=== PATIENT | female | born 1990 | race Caucasian/White ===

== ENCOUNTER 2025-06-11 18:56 | Emergency (ER) | payer SELFPAY ==
--- NOTE | ~2025-06-11 | XR_ITS ---
XR knee RT 3V INDICATION: right knee pain after twisting today. . COMPARISON: None. FINDINGS: Frontal, lateral and oblique views of the right knee demonstrate no acute fracture or dislocation. There is no joint effusion. IMPRESSION: Radiographic examination of the right knee demonstrates no acute fracture or dislocation. Reviewed, dictated and finalized at location S. IMPRESSION: Radiographic examination of the right knee demonstrates no acute fracture or di slocation.
[2025-06-11 19:04] VITALS: BP 149/94; PULSE 76; RESP 18; TEMP 36.3; O2SAT 100
--- NOTE | 2025-06-11 19:47 | ED.GENADULT ---
HPI - General Adult General Chief complaint: Extremity Injury, Lower Stated complaint: right knee injury Source: patient Mode of arrival: ambulatory Limitations: no limitations History of Present Illness HPI narrative: Patient presents for evaluation of right knee pain. She indicates she has a history of chronic knee pain and has had several surgeries in the past. Today she was playing with her dog when she twisted her right knee. Pain is 7/10 in severity and rest and increased in severity with flexion. No radicular component. She has not taken any medication for symptoms. Related Data Home Medications ?Medication ?Instructions ?Recorded ?Confirmed ?Last Taken ?Type No Home Medications 06/11/25 06/11/25 Unknown History Allergies Allergy/AdvReac Type Severity Reaction Status Date / Time No Known Allergies Allergy Verified 06/11/25 19:06 Review of Systems Review of Systems: CONSTITUTIONAL: Denies fever, chills, or sweats. EYES: Denies visual changes, redness, or discharge. ENT: Denies rhinorrhea, congestion, sore throat, or otalgia. CARDIOVASCULAR: Denies chest pain, palpitations, or edema. RESPIRATORY: Denies cough or dyspnea. GASTROINTESTINAL: Denies abdominal pain, nausea, vomiting, or diarrhea. GENITOURINARY: Denies dysuria or hematuria. SKIN: Denies rash or itching. MUSCULOSKELETAL: Reports right knee pain NEUROLOGIC: Denies headache, numbness, dizziness, or weakness. PSYCHIATRIC: Denies anxiety or depression. [facility] Past Medical History Medical History Chronic knee pain Surgical History Surgical History History of knee surgery Family History Family History Mother Family history non-contributory Social History Social History Smoking packs per day: 0.5 Smoking cigarettes per day: 10.0 Smoking status: Current every day smoker Alcohol intake: current Gender identity (if verbalized by the patient): Female Sexual Orientation (if Verbalized by the Patient): Straight or Heterosexual Exam Narrative: GENERAL: Well-appearing, well-nourished, and in no acute distress. HEAD: Normocephalic, atraumatic. EYES: PERRLA and EOMI. ENT: Nares clear, no rhinorrhea or epistaxis. Mucous membranes moist. Oropharynx without tonsillar hypertrophy exudate or other lesions. Bilateral TMs pearly gibson nonbulging NECK: Supple. No adenopathy or masses. No carotid bruits or JVD CHEST: Clear to auscultation. No respiratory distress. No wheezes rales or rhonchi HEART: Regular rate and rhythm. No murmur heard. Normal peripheral pulses. ABDOMEN: Soft, nontender, nondistended, normal active bowel sounds. EXTREMITIES: Full range of motion of the right knee without crepitus or deformity. She does exhibit hesitancy with flexion extension secondary to pain SKIN: Linear surgical scar noted to the anterior aspect of the right knee without erythema or drainage. Warm, dry, no rash. NEURO: No focal deficits. Alert and oriented x3. PSYCH: Normal mood and affect. Course Course Emergency Course: This is a 34-year-old female who presented for evaluation of right knee pain. X-ray negative for fracture. Provided with Fausto wrap and crutches. Advised on RICE therapy. NSAIDs for pain. Follow up with primary provider. Go to the ER for worsening symptoms. Pt in agreement with plan of care. Level of Care: Express Care Visit Vital Signs Vital signs: Vital Signs Temperature 36.3 C L 06/11/25 19:04 Pulse Rate 76 06/11/25 19:04 Respiratory Rate 18 06/11/25 19:04 Blood Pressure 149/94 H 06/11/25 19:04 Pulse Oximetry 100 06/11/25 19:04 Oxygen Delivery Room Air 06/11/25 19:04 Temperature 36.3 C L 06/11/25 19:04 Pulse Rate 76 06/11/25 19:04 Respiratory Rate 18 06/11/25 19:04 Blood Pressure 149/94 H 06/11/25 19:04 Pulse Oximetry 100 06/11/25 19:04 Oxygen Delivery Room Air 06/11/25 19:04 Medical Decision Making Vital Signs Vital Signs: Vital Signs Temperature 36.3 C L 06/11/25 19:04 Pulse Rate 76 06/11/25 19:04 Respiratory Rate 18 06/11/25 19:04 Blood Pressure 149/94 H 06/11/25 19:04 Pulse Oximetry 100 06/11/25 19:04 Oxygen Delivery Room Air 06/11/25 19:04 Temperature 36.3 C L 06/11/25 19:04 Pulse Rate 76 06/11/25 19:04 Respiratory Rate 18 06/11/25 19:04 Blood Pressure 149/94 H 06/11/25 19:04 Pulse Oximetry 100 06/11/25 19:04 Oxygen Delivery Room Air 06/11/25 19:04 Imaging Data Radiologist's impression: Ordering Physician: Fernando Crowder APRN Date of Service: 06/11/25 Procedure(s): XR knee RT 3V Accession Number(s): [id number] cc: Fernando Crwoder APRN; AIR CONDITIONING INSTALLER SUPERVISOR PHYSICIAN~ XR knee RT 3V INDICATION: right knee pain after twisting today. . COMPARISON: None. FINDINGS: Frontal, lateral and oblique views of the right knee demonstrate no acute fracture or dislocation. There is no joint effusion. IMPRESSION: Radiographic examination of the right knee demonstrates no acute fracture or dislocation. Discharge Plan Discharge Clinical Impression: Muscle strain of right knee Patient Disposition: Home Condition: Stable Instructions: Antibiotic Form, Knee Pain (ED) Patient Language: Eritrean Prescriptions: No Action No Home Medications Follow-up/Referrals: Preston Hernandez MD [Physician, Family Practice] Stand Alone Forms: Work/School Release IP Time of Disposition: 19:43
--- OUTSIDE RECORDS SUMMARY | 2025-06-11 20:07 | XMS_ITS | Encounter Summary ---
Author Organization [facility] Address [address] [place] [address] Care Team Providers Care Pit Clerk Name Role Phone Tyler Khoury MD Primary Care Provider [phone] Encounter Details Date Type Department Care Team (Late st Contact Info) Description 06/08/2008 Outpatient Historical [facility] [address] [facility] [address] [place] [address] Xavier Smith DO [address] [place] [address] [address] [place] [address] Social History Tobacco Use Types Packs/Day Years Used Date Smoking Tobacco: Never Assessed Comments Unknown Sex and Gender Information Value Date Recorded Sex Assigned at Not on file Legal Sex Female 5:28 AM WATER RESOURCE MANAGER Gender Identity Not on file Sexual Orientation Not on file documented as of this encounter Plan of Treatment Not on file documented as of this encounter Visit Diagnoses Not on filedocumented in this encounter Additional Health Concerns Infection Onset Date Last Indicated Resolved Time R/O COVID-19 12/15/2021 12/15/2021 12/15/2021 6:37 PM CDT R/O COVID-19 07/19/2022 07/19/2022 07/19/2022 8:51 AM WATER RESOURCE MANAGER COVID-19 07/19/2022 07/19/2022 08/08/2022 1:16 AM WATER RESOURCE MANAGER documented as of this encounter Care Teams Pit Clerk Relationship Specialty Start Date End Date Tyler Khoury MD [address] [place] [address] PCP - General 10/19/12 05/06/14 documented as of this encounter
--- OUTSIDE RECORDS SUMMARY | 2025-06-11 20:07 | XMS_ITS | Encounter Summary ---
Author Organization [facility] Address [address] [place] [address] Care Team Providers Care Chassis Engineer Name Role Phone Tyler Khoury MD Primary Care Provider [phone] Encounter Details Date Type Department Care Team (Late st Contact Info) Description 05/18/2008 Outpatient Historical [facility] [address] [place] [phone] Steve Womack MD [address] [place] [address] [address] [place] [address] Social History Tobacco Use Types Packs/Day Years Used Date Smoking Tobacco: Never Assessed Comments Unknown Sex and Gender Information Value Date Recorded Sex Assigned at Not on file Legal Sex Female 5:28 AM TEST CENTER MANAGER Gender Identity Not on file Sexual Orientation Not on file documented as of this encounter Plan of Treatment Not on file documented as of this encounter Visit Diagnoses Not on filedocumented in this encounter Additional Health Concerns Infection Onset Date Last Indicated Resolved Time R/O COVID-19 12/15/2021 12/15/2021 12/15/2021 6:37 PM CDT R/O COVID-19 07/19/2022 07/19/2022 07/19/2022 8:51 AM TEST CENTER MANAGER COVID-19 07/19/2022 07/19/2022 08/08/2022 1:16 AM TEST CENTER MANAGER documented as of this encounter Care Teams Chassis Engineer Relationship Specialty Start Date End Date Tyler Khoury MD [address] [place] [address] PCP - General 10/19/12 05/06/14 documented as of this encounter
--- OUTSIDE RECORDS SUMMARY | 2025-06-11 20:07 | XMS_ITS | Encounter Summary ---
Author Organization [employer] Address [address] [place] [address] Care Team Providers Care E Commerce Project Manager Name Role Phone Tyler Khoury MD Primary Care Provider [phone] Encounter Details Date Type Department Care Team (Late st Contact Info) Description 12/12/2007 Outpatient Historical [facility] Vonda Brito MD [address] [facility] [address] [place] [phone] Syncope and Collapse Social History Tobacco Use Types Packs/Day Years Used Date Smoking Tobacco: Never Assessed Comments Unknown Sex and Gender Information Value Date Recorded Sex Assigned at Not on file Legal Sex Female 5:28 AM LINUX NETWORK SYSTEMS ADMINISTRATOR Gender Identity Not on file Sexual Orientation Not on file documented as of this encounter Plan of Treatment Not on file documented as of this encounter Visit Diagnoses Diagnosis Syncope and collapse documented in this encounter Additional Health Concerns Infection Onset Date Last Indicated Resolved Time R/O COVID-19 12/15/2021 12/15/2021 12/15/2021 6:37 PM CDT R/O COVID-19 07/19/2022 07/19/2022 07/19/2022 8:51 AM LINUX NETWORK SYSTEMS ADMINISTRATOR COVID-19 07/19/2022 07/19/2022 08/08/2022 1:16 AM LINUX NETWORK SYSTEMS ADMINISTRATOR documented as of this encounter Care Teams E Commerce Project Manager Relationship Specialty Start Date End Date Tyler Khoury MD [address] [place] [address] PCP - General 10/19/12 05/06/14 documented as of this encounter
--- OUTSIDE RECORDS SUMMARY | 2025-06-11 20:07 | XMS_ITS | Encounter Summary ---
Author Organization [facility] Address [address] [place] [address] Care Team Providers Care Channeler Insole Name Role Phone Tyler Khoury MD Primary Care Provider [phone] Encounter Details Date Type Department Care Team (Late st Contact Info) Description 12/13/2007 Outpatient Historical [facility] [address] [facility] [address] [place] [phone] Xvaier Smith DO [address] [place] [address] [address] [place] [address] Social History Tobacco Use Types Packs/Day Years Used Date Smoking Tobacco: Never Assessed Comments Unknown Sex and Gender Information Value Date Recorded Sex Assigned at Not on file Legal Sex Female 5:28 AM BRAID FOLDER Gender Identity Not on file Sexual Orientation Not on file documented as of this encounter Plan of Treatment Not on file documented as of this encounter Visit Diagnoses Not on filedocumented in this encounter Additional Health Concerns Infection Onset Date Last Indicated Resolved Time R/O COVID-19 12/15/2021 12/15/2021 12/15/2021 6:37 PM CDT R/O COVID-19 07/19/2022 07/19/2022 07/19/2022 8:51 AM BRAID FOLDER COVID-19 07/19/2022 07/19/2022 08/08/2022 1:16 AM BRAID FOLDER documented as of this encounter Care Teams Channeler Insole Relationship Specialty Start Date End Date Tyler Khoury MD [address] [place] [address] PCP - General 10/19/12 05/06/14 documented as of this encounter
--- OUTSIDE RECORDS SUMMARY | 2025-06-11 20:07 | XMS_ITS | Encounter Summary ---
Author Organization [facility] Address [address] [place] [address] Care Team Providers Care Lehr Operator Name Role Phone Tyler Khoury MD Primary Care Provider [phone] Encounter Details Date Type Department Care Team (Late st Contact Info) Description 05/14/2008 Outpatient Historical [facility] [address] [place] [address] Steve Womack MD [address] [place] [address] [address] [place] [address] Social History Tobacco Use Types Packs/Day Years Used Date Smoking Tobacco: Never Assessed Comments Unknown Sex and Gender Information Value Date Recorded Sex Assigned at Not on file Legal Sex Female 5:28 AM HEEL REDUCER Gender Identity Not on file Sexual Orientation Not on file documented as of this encounter Plan of Treatment Not on file documented as of this encounter Visit Diagnoses Not on filedocumented in this encounter Additional Health Concerns Infection Onset Date Last Indicated Resolved Time R/O COVID-19 12/15/2021 12/15/2021 12/15/2021 6:37 PM CDT R/O COVID-19 07/19/2022 07/19/2022 07/19/2022 8:51 AM HEEL REDUCER COVID-19 07/19/2022 07/19/2022 08/08/2022 1:16 AM HEEL REDUCER documented as of this encounter Care Teams Lehr Operator Relationship Specialty Start Date End Date Tyler Khoury MD [address] [place] [address] PCP - General 10/19/12 05/06/14 documented as of this encounter
--- OUTSIDE RECORDS SUMMARY | 2025-06-11 20:07 | XMS_ITS | Encounter Summary ---
Author Organization [facility] Address [address] [place] [address] Care Team Providers Care Spiritual Care Coordinator Name Role Phone Tyler Khoury MD Primary Care Provider [phone] Encounter Details Date Type Department Care Team (Latest Contact Info) Description 11/08/2007 Outpatient Historical [facility] Meredith Rios MD [address] [address] Supervision of Other Normal Social History Tobacco Use Types Packs/Day Years Used Date Smoking Tobacco: Never Assessed Comments Unknown Sex and Gender Information Value Date Recorded Sex Assigned at Not on file Legal Sex Female 5:28 AM HEAD ROSE GROWER Gender Identity Not on file Sexual Orientation Not on file documented as of this encounter Plan of Treatment Not on file documented as of this encounter Procedures Procedure Name Priority Date/Time Associated Diagnosis Comments US OB LESS THAN 14 WKS SINGLE GEST Timed Study 11/08/2007 1:48 PM CDT documented in this encounter Results * US OB < 14 WKS SINGLE GEST (11/08/2007 1:48 PM CDT) Anatomical Region Laterality Modality Pelvis Other 11/08/2007 1:48 PM CDT Narrative 11/10/2007 6:41 AM CDT [facility] [address] [address] Admit Date: 11/08/2007 OLIVA BASILIO Sex: F Admit Prov: MEREDITH BARTON Date: 1990 Primary Care Prov: JESS BEGUM CMRN: [id number] [facility]: [id number] IMAGING SERVICES Ordering Prov: MEREDITH BARTON Accession Number: [id number] Interpretation PLEASE SEE REPORT FROM [facility] IN AWD OR ULTRAVISUAL. Dictated by: RADIOLOGY, DEPARTMENT O Electronically signed by: RADIOLOGY, DEPARTMENT 11/10/2007 06:41 Transcribed: 11/09/2007 14:34 RLH Procedure Note Provider, Historical - 11/10/[address] [address] Admit Date: 11/08/2007 OLIVA BASILIO Sex: F Admit Prov: MEREDITH BARTON Date: 1990 Primary Care Prov: JESS BEGUM CMRN: [id number] Room: [facility] SSN: [id number] IMAGING SERVICES Ordering Prov: BARTON MEREDITH Diomedes Interpretation PLEASE SEE REPORT FROM [facility] IN AWD OR ULTRAVISUAL. Dictated by: RADIOLOGY, DEPARTMENT O Electronically signed by: RADIOLOGY, DEPARTMENT 11/10/2007 06:41 Transcribed: 11/09/2007 14:34 RL Meredith Rios MD US ORDERABLES Final Result documented in this encounter Visit Diagnoses Diagnosis Supervision of other normal documented in this encounter Additional Health Concerns Infection Onset Date Last Indicated Resolved Time R/O COVID-19 12/15/2021 12/15/2021 12/15/2021 6:37 PM CDT R/O COVID-19 07/19/2022 07/19/2022 07/19/2022 8:51 AM HEAD ROSE GROWER COVID-19 07/19/2022 07/19/2022 08/08/2022 1:16 AM HEAD ROSE GROWER documented as of this encounter Care Teams Spiritual Care Coordinator Relationship Specialty Start Date End Date Tyler Khoury MD [address] [place] [address] PCP - General 10/19/12 05/06/14 documented as of this encounter
--- OUTSIDE RECORDS SUMMARY | 2025-06-11 20:07 | XMS_ITS | Encounter Summary ---
Author Organization [facility] Address [address] [place] [address] Care Team Providers Care Footwear Production Machine Operator Name Role Phone Tyler Khoury MD Primary Care Provider [phone] Encounter Details Date Type Department Care Team (Late st Contact Info) Description 04/08/2008 Outpatient Historical [facility] [address] [facility] [address] [place] [phone] Xavier Smith DO [address] [place] [address] [address] [place] [address] Social History Tobacco Use Types Packs/Day Years Used Date Smoking Tobacco: Never Assessed Comments Unknown Sex and Gender Information Value Date Recorded Sex Assigned at Not on file Legal Sex Female 5:28 AM PROPERTY CONDITION ASSESSOR Gender Identity Not on file Sexual Orientation Not on file documented as of this encounter Plan of Treatment Not on file documented as of this encounter Visit Diagnoses Not on filedocumented in this encounter Additional Health Concerns Infection Onset Date Last Indicated Resolved Time R/O COVID-19 12/15/2021 12/15/2021 12/15/2021 6:37 PM CDT R/O COVID-19 07/19/2022 07/19/2022 07/19/2022 8:51 AM PROPERTY CONDITION ASSESSOR COVID-19 07/19/2022 07/19/2022 08/08/2022 1:16 AM PROPERTY CONDITION ASSESSOR documented as of this encounter Care Teams Footwear Production Machine Operator Relationship Specialty Start Date End Date Tyler Khoury MD [address] [place] [address] PCP - General 10/19/12 05/06/14 documented as of this encounter
--- OUTSIDE RECORDS SUMMARY | 2025-06-11 20:07 | XMS_ITS | Encounter Summary ---
Author Organization [facility] Address [address] [place] [address] Care Team Providers Care Ui Software Developer Name Role Phone Tyler Khoury MD Primary Care Provider [phone] Encounter Details Date Type Department Care Team (Late st Contact Info) Description 05/07/2008 Outpatient Historical [facility] [address] [facility] [address] [place] [address] Xavier Smith DO [address] [place] [address] [address] [place] [address] Social History Tobacco Use Types Packs/Day Years Used Date Smoking Tobacco: Never Assessed Comments Unknown Sex and Gender Information Value Date Recorded Sex Assigned at Not on file Legal Sex Female 5:28 AM SLURRY WORKER Gender Identity Not on file Sexual Orientation Not on file documented as of this encounter Plan of Treatment Not on file documented as of this encounter Visit Diagnoses Not on filedocumented in this encounter Additional Health Concerns Infection Onset Date Last Indicated Resolved Time R/O COVID-19 12/15/2021 12/15/2021 12/15/2021 6:37 PM CDT R/O COVID-19 07/19/2022 07/19/2022 07/19/2022 8:51 AM SLURRY WORKER COVID-19 07/19/2022 07/19/2022 08/08/2022 1:16 AM SLURRY WORKER documented as of this encounter Care Teams Ui Software Developer Relationship Specialty Start Date End Date Tyler Khoury MD [address] [place] [address] PCP - General 10/19/12 05/06/14 documented as of this encounter
--- OUTSIDE RECORDS SUMMARY | 2025-06-11 20:07 | XMS_ITS | Encounter Summary ---
Author Organization [facility] Address [address] [place] [address] Care Team Providers Care Medical Coding Auditor Name Role Phone Tyler Khoury MD Primary Care Provider [phone] Encounter Details Date Type Department Care Team (Late st Contact Info) Description 05/06/2008 Outpatient Historical [facility] [address] [facility] [address] [place] [address] Xavier Smith DO [address] [place] [address] [address] [place] [address] Social History Tobacco Use Types Packs/Day Years Used Date Smoking Tobacco: Never Assessed Comments Unknown Sex and Gender Information Value Date Recorded Sex Assigned at Not on file Legal Sex Female 5:28 AM PETROLEUM SUPPLY SPECIALIST Gender Identity Not on file Sexual Orientation Not on file documented as of this encounter Plan of Treatment Not on file documented as of this encounter Visit Diagnoses Not on filedocumented in this encounter Additional Health Concerns Infection Onset Date Last Indicated Resolved Time R/O COVID-19 12/15/2021 12/15/2021 12/15/2021 6:37 PM CDT R/O COVID-19 07/19/2022 07/19/2022 07/19/2022 8:51 AM PETROLEUM SUPPLY SPECIALIST COVID-19 07/19/2022 07/19/2022 08/08/2022 1:16 AM PETROLEUM SUPPLY SPECIALIST documented as of this encounter Care Teams Medical Coding Auditor Relationship Specialty Start Date End Date Tyler Khoury MD [address] [place] [address] PCP - General 10/19/12 05/06/14 documented as of this encounter
--- OUTSIDE RECORDS SUMMARY | 2025-06-11 20:07 | XMS_ITS | Encounter Summary ---
Author Organization [facility] Address [address] [place] [address] Care Team Providers Care Video And Sound Recorder Name Role Phone Tyler Khoury MD Primary Care Provider [phone] Encounter Details Date Type Department Care Team (Late st Contact Info) Description 06/03/2008 Outpatient Historical [facility] Meredith Rios MD [address] [phone] Supervision of Other Normal Social History Tobacco Use Types Packs/Day Years Used Date Smoking Tobacco: Never Assessed Comments Unknown Sex and Gender Information Value Date Recorded Sex Assigned at Not on file Legal Sex Female 5:28 AM FISH EGG PACKER Gender Identity Not on file Sexual Orientation Not on file documented as of this encounter Plan of Treatment Not on file documented as of this encounter Procedures Procedure Name Priority Date/Time Associated Diagnosis Comments (BROTH-ENRICHED) GROUP B STREP DETECTION Routine 06/03/2008 9:30 AM CDT documented in this encounter Results * STREPTOCOCCUS GROUP B CULTURE (06/03/2008 9:30 AM CDT) PRELIMINARY REPORT Pending [facility] FINAL REPORT No Streptococcus Group B isolated. [facility] 06/03/2008 9:30 AM CDT 06/03/2008 1:15 PM CDT us Meredith Rios MD MICROBIOLOGY - GENERAL ORDERA BLES Final Result INTERFACE SYSTEM Refer to clinic/hospital department [facility] CLIA# [id number] [address] [place] [address] documented in this encounter Visit Diagnoses Diagnosis Supervision of other normal documented in this encounter Additional Health Concerns Infection Onset Date Last Indicated Resolved Time R/O COVID-19 12/15/2021 12/15/2021 12/15/2021 6:37 PM CDT R/O COVID-19 07/19/2022 07/19/2022 07/19/2022 8:51 AM FISH EGG PACKER COVID-19 07/19/2022 07/19/2022 08/08/2022 1:16 AM FISH EGG PACKER documented as of this encounter Care Teams Video And Sound Recorder Relationship Specialty Start Date End Date Tyler Khoury MD [address] [place] [address] PCP - General 10/19/12 05/06/14 documented as of this encounter
--- OUTSIDE RECORDS SUMMARY | 2025-06-11 20:07 | XMS_ITS | Encounter Summary ---
Author Organization [facility] Address [address] [place] [address] Care Team Providers Care Photogrammetric Tech Name Role Phone Tyler Khoury MD Primary Care Provider [phone] Encounter Details Date Type Department Care Team (Late st Contact Info) Description 12/11/2007 Outpatient Historical [facility] [address] [place] [phone] Meredith Rios MD [address] [place] [phone] Social History Tobacco Use Types Packs/Day Years Used Date Smoking Tobacco: Never Assessed Comments Unknown Sex and Gender Information Value Date Recorded Sex Assigned at Not on file Legal Sex Female 5:28 AM REVENUE FIELD AGENT Gender Identity Not on file Sexual Orientation Not on file documented as of this encounter Plan of Treatment Not on file documented as of this encounter Visit Diagnoses Not on filedocumented in this encounter Additional Health Concerns Infection Onset Date Last Indicated Resolved Time R/O COVID-19 12/15/2021 12/15/2021 12/15/2021 6:37 PM CDT R/O COVID-19 07/19/2022 07/19/2022 07/19/2022 8:51 AM REVENUE FIELD AGENT COVID-19 07/19/2022 07/19/2022 08/08/2022 1:16 AM REVENUE FIELD AGENT documented as of this encounter Care Teams Photogrammetric Tech Relationship Specialty Start Date End Date Tyler Khoury MD [address] [place] [address] PCP - General 10/19/12 05/06/14 documented as of this encounter
--- OUTSIDE RECORDS SUMMARY | 2025-06-11 20:07 | XMS_ITS | Encounter Summary ---
Author Organization [employer] Address 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 Social History Tobacco Use Types Packs/Day Years Used Date Smoking Tobacco: Never Assessed Comments Unknown Sex and Gender Information Value Date Recorded Sex Assigned at Not on file Legal Sex Female 5:28 AM BIOLOGICAL SCIENCES INSTRUCTOR Gender Identity Not on file Sexual Orientation Not on file documented as of this encounter Plan of Treatment Not on file documented as of this encounter Visit Diagnoses Diagnosis 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
--- OUTSIDE RECORDS SUMMARY | 2025-06-11 20:07 | XMS_ITS | Clinical Summary ---
Author Organization [facility] on Address [address] [place] [address] Phone Care Team Providers Care Bleacher Operator Name Role Phone Unavailable Primary Care Provider Unavailabl e Allergies Active Allergy Reactions Criticality Noted Date Comments Ketorolac Unknown 03/04/2024 Possible anxiety per pt Prochlorperazine Anxiety,Hallucination Low 03/03/20 14 Medications ondansetron (ZOFRAN ODT) 4 mg Tablet, Rapid Dissolve Take 1 Tablet (4 mg) by mouth every 8 hours as needed for Nausea/Emesis. Dissolve tablet on top of tongue, then swallow with saliva. 10 Tablet Active Additional Information Patient not taking.Reported on 10/28/2023 acetaminophen (TYLENOL) 500 mg tablet Take 500 mg by mouth every 6 hours as needed. Active Active Problems Problem Noted Date Diagnosed Date Tobacco use 10/07/2016 Cigarette dependence 10/07/2016 Encounters Date Type Department Care Team Description 05/28/2025 External Device Data ST[facility] ABSTRACTION Provider, Abstract 05/21/2025 External Device Data ST[facility] ABSTRACTION Provider, Abstract 05/21/2025 External Device Data ST[facility] ABSTRACTION Provider, Abstract 04/24/2025 External Device Data ST[facility] ABSTRACTION Provider, Abstract 04/23/2025 External Device Data ST[facility] ABSTRACTION Provider, Abstract 04/10/2025 External Device Data STL ABSTRACTION Provider, Abstract from Last 3 Months Family History Medical History Relation Name Comments Healthy Father Hypertension Mother Relation Name Status Comments Father Mother Social History Tobacco Use Types Packs/Day Years Used Date Smoking Tobacco: Every Day Cigarettes 1 8 Smokeless Tobacco: Never Tobacco Cessation:Ready to Q uit: Not Asked; Counseling Given: Not Answered Alcohol Use Standard Drinks/Week Comments Yes 0 (1 standard drink = 0.6 oz pur e alcohol) occ Feeling Safe Answer Date Recorded Are you in a relationship wi th someone who hurts you emotionally and/or physically? No 05/30/2024 Comments No Sex and Gender Information Value Date Recorded Sex Assigned at Not on file Legal Sex Female 5:28 AM CALENDER TENDER Gender Identity Not on file Sexual Orientation Not on file Last Filed Vital Signs Vital Sign Reading Time Taken Comments Blood Pressure 128/84 05/30/2024 4:53 PM CDT Pulse 86 05/30/2024 4:53 PM CDT Temperature 37.2 C (99 F) 05/30/2024 4:53 PM CDT Respiratory Rate 18 05/30/2024 4:53 PM CDT Oxygen Saturation 97% 05/30/2024 4:53 PM CDT Inhaled Oxygen Concentration - - Weight 54.4 kg (120 lb) 05/30/2024 4:53 PM CDT Height 162.6 cm (5' 4) 05/30/2024 4:53 PM CDT Body Mass Index 20.6 05/30/2024 4:53 PM CDT Plan of Treatment Health Maintenance Due Date Last Done Comments DTAP/TDAP/TD VACCINES (1 - Tdap) 11/05/2007 HEPATITIS B VACCINES (1 of 3 - 19+ 3-dose series) 10/20 HPV/Cotest (21-29) 2009 HPV VACCINES (1 - 3-dose SCDM series) 11/05/2015 CERVICAL CANCER SCREENING 2018 HPV/Cotest (30-65) 2018 PAP SMEAR 2018 INFLUENZA VACCINE (#1) [address] [facility]
--- OUTSIDE RECORDS SUMMARY | 2025-06-11 20:07 | XMS_ITS | Encounter Summary ---
Author Organization [facility] Address [address] Attn: Epic Prelude ADT [place] [address] Care Team Providers Care Warp Placer Name Role Phone Tyler Khoury MD Primary Care Provider [phone] Encounter Details Date Type Department Care Team (Late st Contact Info) Description 02/07/2008 Outpatient Historical [facility] Social History Tobacco Use Types Packs/Day Years Used Date Smoking Tobacco: Never Assessed Comments Unknown Sex and Gender Information Value Date Recorded Sex Assigned at Not on file Legal Sex Female 5:28 AM NURSE Gender Identity Not on file Sexual Orientation Not on file documented as of this encounter Plan of Treatment Not on file documented as of this encounter Visit Diagnoses Not on filedocumented in this encounter Additional Health Concerns Infection Onset Date Last Indicated Resolved Time R/O COVID-19 12/15/2021 12/15/2021 12/15/2021 6:37 PM CDT R/O COVID-19 07/19/2022 07/19/2022 07/19/2022 8:51 AM NURSE COVID-19 07/19/2022 07/19/2022 08/08/2022 1:16 AM NURSE documented as of this encounter Care Teams Warp Placer Relationship Specialty Start Date End Date Tyler Khoury MD [address] [place] [address] PCP - General 10/19/12 05/06/14 documented as of this encounter
--- OUTSIDE RECORDS SUMMARY | 2025-06-11 20:07 | XMS_ITS | Encounter Summary ---
Author Organization [facility] Address [address] [place] [address] Care Team Providers Care Hot Pond Operator Name Role Phone Tyler Khoury MD Primary Care Provider [phone] Encounter Details Date Type Department Care Team (Late st Contact Info) Description 01/24/2008 Outpatient Historical [facility] [address] [place] [phone] Social History Tobacco Use Types Packs/Day Years Used Date Smoking Tobacco: Never Assessed Comments Unknown Sex and Gender Information Value Date Recorded Sex Assigned at Not on file Legal Sex Female 5:28 AM CORE SHAPER TOP Gender Identity Not on file Sexual Orientation Not on file documented as of this encounter Plan of Treatment Not on file documented as of this encounter Visit Diagnoses Not on filedocumented in this encounter Additional Health Concerns Infection Onset Date Last Indicated Resolved Time R/O COVID-19 12/15/2021 12/15/2021 12/15/2021 6:37 PM CDT R/O COVID-19 07/19/2022 07/19/2022 07/19/2022 8:51 AM CORE SHAPER TOP COVID-19 07/19/2022 07/19/2022 08/08/2022 1:16 AM CORE SHAPER TOP documented as of this encounter Care Teams Hot Pond Operator Relationship Specialty Start Date End Date Tyler Khoury MD [address] [place] [address] PCP - General 10/19/12 05/06/14 documented as of this encounter
--- OUTSIDE RECORDS SUMMARY | 2025-06-11 20:07 | XMS_ITS | Encounter Summary ---
Author Organization [facility] Address [address] [place] [address] Care Team Providers Care Principal Security Architect Name Role Phone Tyler Khoury MD Primary Care Provider [phone] Encounter Details Date Type Department Care Team (Late st Contact Info) Description 07/23/2008 Outpatient Historical [facility] [address] [place] [phone] Meredith Rios MD [address] [place] [phone] Social History Tobacco Use Types Packs/Day Years Used Date Smoking Tobacco: Never Assessed Comments Unknown Sex and Gender Information Value Date Recorded Sex Assigned at Not on file Legal Sex Female 5:28 AM MAJOR ASSEMBLY INSPECTOR Gender Identity Not on file Sexual Orientation Not on file documented as of this encounter Plan of Treatment Not on file documented as of this encounter Visit Diagnoses Not on filedocumented in this encounter Additional Health Concerns Infection Onset Date Last Indicated Resolved Time R/O COVID-19 12/15/2021 12/15/2021 12/15/2021 6:37 PM CDT R/O COVID-19 07/19/2022 07/19/2022 07/19/2022 8:51 AM MAJOR ASSEMBLY INSPECTOR COVID-19 07/19/2022 07/19/2022 08/08/2022 1:16 AM MAJOR ASSEMBLY INSPECTOR documented as of this encounter Care Teams Principal Security Architect Relationship Specialty Start Date End Date Tyler Khoury MD [address] [place] [address] PCP - General 10/19/12 05/06/14 documented as of this encounter
--- OUTSIDE RECORDS SUMMARY | 2025-06-11 20:07 | XMS_ITS | Encounter Summary ---
Author Organization [facility] Address [address] [place] [address] Care Team Providers Care Computer Repair Engineer Name Role Phone Tyler Khoury MD Primary Care Provider [phone] Encounter Details Date Type Department Care Team (Late st Contact Info) Description 03/18/2008 Outpatient Historical [facility] [address] [place] [phone] Meredith Rios MD [address] [place] [phone] Social History Tobacco Use Types Packs/Day Years Used Date Smoking Tobacco: Never Assessed Comments Unknown Sex and Gender Information Value Date Recorded Sex Assigned at Not on file Legal Sex Female 5:28 AM JEWELRY POLISHER Gender Identity Not on file Sexual Orientation Not on file documented as of this encounter Plan of Treatment Not on file documented as of this encounter Visit Diagnoses Not on filedocumented in this encounter Additional Health Concerns Infection Onset Date Last Indicated Resolved Time R/O COVID-19 12/15/2021 12/15/2021 12/15/2021 6:37 PM CDT R/O COVID-19 07/19/2022 07/19/2022 07/19/2022 8:51 AM JEWELRY POLISHER COVID-19 07/19/2022 07/19/2022 08/08/2022 1:16 AM JEWELRY POLISHER documented as of this encounter Care Teams Computer Repair Engineer Relationship Specialty Start Date End Date Tyler Khoury MD [address] [place] [address] PCP - General 10/19/12 05/06/14 documented as of this encounter
--- OUTSIDE RECORDS SUMMARY | 2025-06-11 20:07 | XMS_ITS | Encounter Summary ---
Author Organization [employer] Address [address] [place] [address] Care Team Providers Care Process Architect Name Role Phone Tyler Khoury MD Primary Care Provider [phone] Encounter Details Date Type Department Care Team (Late st Contact Info) Description 06/08/2008 Outpatient Historical [facility] INPATIENT IN BED Xavier Smith DO [address] [place] [phone] Thalia Irizarry MD [address] [place] [phone] Normal Delivery Social History Tobacco Use Types Packs/Day Years Used Date Smoking Tobacco: Never Assessed Comments Unknown Sex and Gender Information Value Date Recorded Sex Assigned at Not on file Legal Sex Female 5:28 AM DATASTAGE ARCHITECT Gender Identity Not on file Sexual Orientation Not on file documented as of this encounter Plan of Treatment Not on file documented as of this encounter Procedures Procedure Name Priority Date/Time Associated Diagnosis Comments CBC WITH DIFFERENTIAL Routine 06/10/2008 5:05 AM CDT CORD BLOOD EVALUATION MOTHER Routine 06/09/2008 7:58 AM CDT BLOOD GAS CORD ARTERIAL Routine 06/09/2008 6:15 AM CDT CBC WITH DIFFERENTIAL Stat 06/09/2008 2:55 AM CDT documented in this encounter Results * (ABNORMAL) CBC WITH DIFFERENTIAL (06/10/2008 5:05 AM CDT) RBC 3.96 3.90 - 4.90 M/uL [facility] MCHC 32.6 31.5 - 35.5 % [facility] MCV 79.8(L) 82.0 - 99.0 fL [facility] PLATELETS 154 140 - 350 K/uL [facility] HEMOGLOBIN 10.3(L) 11.8 - 14.8 g/dL [facility] RDW 14.1 11.5 - 14.5 % [facility] WBC 8.5 4.0 - 9.8 K/uL [facility] MPV 11.2 9.3 - 12.4 fL [facility] MCH 26.0(L) 27.2 - 32.6 pg [facility] HEMATOCRIT 31.6(L) 35.5 - 44.0 % [facility] RDW-STDEV 40.4 37.1 - 48.7 fL [facility] LYMPHOCYTE ABSOLUTE 3.62 0.70 - 4.50 K/uL [facility] BASOPHILS 0 0 - 2 % [facility] BASOPHILS ABSOLUTE 0.01 0.00 - 0.20 K/uL [facility] MONOCYTES 7 3 - 13 % [facility] MONOCYTE ABSOLUTE 0.63 0.10 - 1.30 K/uL [facility] NEUTROPHILS 49 45 - 70 % [facility] NEUTROPHIL ABSOLUTE 4.14 1.90 - 7.00 K/uL [facility] EOSINOPHILS 1 0 - 7 % [facility] EOSINOPHIL ABSOLUTE 0.08 0.00 - 0.70 K/uL [facility] LYMPHOCYTES 43 16 - 45 % [facility] Blood specimen (specimen) 06/10/2008 5:05 AM CDT 06/10/2008 5:09 AM CDT us D Bill Smith DO HEMATOLOGY ORDERABLES Edited Performing Organization Address City/[facility]/ZIP Co de Phone Number INTERFACE SYSTEM Refer to clinic/hospital department [facility] CLIA# [id number] [address] [place] [address] * CORD BLOOD EVALUATION MOTHER (06/09/2008 7:58 AM CDT) CORD BLOOD TYPE O Positive [facility] CORDBLD DIRECT JOHNATHAN Negative [facility] 06/09/2008 7:58 AM CDT Historical Provider BLOOD BANK ORDERABLES Edited Performing Organization Address [facility] de Phone Number INTERFACE SYSTEM Refer to clinic/hospital department [facility] CLIA# [id number] [address] [place] [address] * BLOOD GAS CORD ARTERIAL (06/09/2008 6:15 AM CDT) HEMOGLOBIN CORD ARTERIAL 16.3 14.5 - 22.5 g/dL [facility] BASE EXCESS CORD ARTERIAL -0.5 -7.6 - 1.3 mmol/L [facility] PCO2 CORD ARTERIAL 50 32 - 69 mm Hg [facility] O2 SAT EST CORD ARTERIAL 35 5 - 59 % [facility] HCO3 CORD ARTERIAL 22 16 - 27 mmol/L [facility] PO2 CORD ARTERIAL 19 8 - 33 mm Hg [facility] PH CORD ARTERIAL 7.33 7.14 - 7.40 [facility] Cord blood specimen (specimen) 06/09/2008 6:15 AM CDT 06/09/2008 6:19 AM CDT Thalia Irizarry MD ABG ORDERABLES Final Result Performing Organization Address City/[facility]/[place] Co de Phone Number INTERFACE SYSTEM Refer to clinic/hospital department [facility] CLIA# [id number] [address] [place] [address] * (ABNORMAL) CBC WITH DIFFERENTIAL (06/09/2008 2:55 AM CDT) HEMATOCRIT 37.4 35.5 - 44.0 % [facility] RDW-STDEV 39.4 37.1 - 48.7 fL [facility] RBC 4.69 3.90 - 4.90 M/uL [facility] MCHC 33.2 31.5 - 35.5 % [facility] MCV 79.7(L) 82.0 - 99.0 fL [facility] PLATELETS 193 140 - 350 K/uL [facility] HEMOGLOBIN 12.4 11.8 - 14.8 g/dL [facility] RDW 14.1 11.5 - 14.5 % [facility] WBC 8.5 4.0 - 9.8 K/uL [facility] MPV 11.5 9.3 - 12.4 fL [facility] MCH 26.4(L) 27.2 - 32.6 pg [facility] EOSINOPHIL ABSOLUTE 0.04 0.00 - 0.70 K/uL [facility] LYMPHOCYTES 36 16 - 45 % [facility] LYMPHOCYTE ABSOLUTE 3.02 0.70 - 4.50 K/uL [facility] BASOPHILS 0 0 - 2 % [facility] BASOPHILS ABSOLUTE 0.01 0.00 - 0.20 K/uL [facility] MONOCYTES 7 3 - 13 % [facility] MONOCYTE ABSOLUTE 0.57 0.10 - 1.30 K/uL [facility] NEUTROPHILS 57 45 - 70 % [facility] NEUTROPHIL ABSOLUTE 4.84 1.90 - 7.00 K/uL [facility] EOSINOPHILS 1 0 - 7 % [facility] Blood specimen (specimen) 06/09/2008 2:55 AM CDT 06/09/2008 2:57 AM CDT us Thalia Irizarry MD HEMATOLOGY ORDERABLES Edited INTERFACE SYSTEM Refer to clinic/hospital department [facility] CLIA# [id number] [address] [place] [address] documented in this encounter Visit Diagnoses Diagnosis Normal delivery documented in this encounter Additional Health Concerns Infection Onset Date Last Indicated Resolved Time R/O COVID-19 12/15/2021 12/15/2021 12/15/2021 6:37 PM CDT R/O COVID-19 07/19/2022 07/19/2022 07/19/2022 8:51 AM DATASTAGE ARCHITECT COVID-19 07/19/2022 07/19/2022 08/08/2022 1:16 AM DATASTAGE ARCHITECT documented as of this encounter Care Teams Process Architect Relationship Specialty Start Date End Date Tyler Khoury MD [address] [place] [phone] PCP - General 10/19/12 05/06/14 documented as of this encounter
--- OUTSIDE RECORDS SUMMARY | 2025-06-11 20:07 | XMS_ITS | Encounter Summary ---
Author Organization [employer] Address [address] [place] [address] Care Team Providers Care Fuse Assembler Name Role Phone Tyler Khoury MD Primary Care Provider [phone] Encounter Details Date Type Department Care Team (Late st Contact Info) Description 05/18/2008 Outpatient Historical [facility] OBSERVATION IN BED Xavier Smith DO [address] [place] [address] [address] [place] [address] Steve Womack MD [address] [place] [phone] Social History Tobacco Use Types Packs/Day Years Used Date Smoking Tobacco: Never Assessed Comments Unknown Sex and Gender Information Value Date Recorded Sex Assigned at Not on file Legal Sex Female 5:28 AM PUBLICATIONS DISTRIBUTION CLERK Gender Identity Not on file Sexual Orientation Not on file documented as of this encounter Plan of Treatment Not on file documented as of this encounter Procedures Procedure Name Priority Date/Time Associated Diagnosis Comments URINALYSIS WITH REFLEX CULTURE Stat 05/18/2008 7:15 PM CDT URINALYSIS W/REFLEX MICROSCOPIC Stat 05/18/2008 7:15 PM CDT documented in this encounter Results * (ABNORMAL) URINALYSIS (05/18/2008 7:15 PM CDT) COLOR UA Yellow [facility] NITRITE UA Negative Negative [facility] BILIRUBIN UA Negative Negative [facility] PH UA 6.0 5.0 - 8.0 [facility] KETONES UA Negative Negative [facility] CLARITY UA Clear Clear [facility] PROTEIN UA Negative Negative [facility] BLOOD UA Negative Negative [facility] LEUKOCYTE ESTERASE UA Trace(A) Negative [facility] UROBILINOGEN UA <1 <1 mg/dL [facility] SPECIFIC GRAVITY UA 1.020 1.001 - 1.035 [facility] GLUCOSE UA Negative Negative [facility] MUCOUS, URINE 2+ [facility] BACTERIA UA Trace None Seen /HPF [facility] WBC UA 0-5 0 - 5 /HPF [facility] EPITHELIAL CELLS, URINE 2-5 /HPF [facility] RBC UA 0-2 0 - 2 /HPF [facility] 05/18/2008 7:1 5 PM CDT 05/18/2008 7:28 PM CDT Steve Womack MD URINE ORDERABLES Edited Performing Organization Address [facility] Phone Number INTERFACE SYSTEM Refer to clinic/hospital department [facility] CLIA# [id number] [address] [place] [address] * URINALYSIS WITH REFLEX CULTURE (05/18/2008 7:15 PM CDT) URINE CULTURE ORDER Not indicated [facility] Comment: Criteria for a reflex culture include one or more of the following: Abnormal WBCs, RBCs or bacteria. Lack of qualifying criteria does not exclude the possibility of a urinary tract infection. Dilute urine, drug interference, etc. may decrease the sensitivity of the criteria analytes. Urine specimen (specimen) 05/18/2008 7:15 PM CDT 05/18/2008 7:28 PM CDT us Steve Womack MD URINE ORDERABLES Final Result Performing Organization Address [facility]/State/ZIP Co de Phone Number INTERFACE SYSTEM Refer to clinic/hospital department [facility] CLIA# [id number] [address] [place] [address] documented in this encounter Visit Diagnoses Not on filedocumented in this encounter Additional Health Concerns Infection Onset Date Last Indicated Resolved Time R/O COVID-19 12/15/2021 12/15/2021 12/15/2021 6:37 PM CDT R/O COVID-19 07/19/2022 07/19/2022 07/19/2022 8:51 AM PUBLICATIONS DISTRIBUTION CLERK COVID-19 07/19/2022 07/19/2022 08/08/2022 1:16 AM PUBLICATIONS DISTRIBUTION CLERK documented as of this encounter Care Teams Fuse Assembler Relationship Specialty Start Date End Date Tyler Khoury MD [address] [place] [phone] PCP - General 10/19/12 05/06/14 documented as of this encounter
--- OUTSIDE RECORDS SUMMARY | 2025-06-11 20:07 | XMS_ITS | Encounter Summary ---
Author Organization [facility] Address [address] [place] [address] Care Team Providers Care Textile Conservator Name Role Phone Tyler Khoury MD Primary Care Provider [phone] Encounter Details Date Type Department Care Team (Late st Contact Info) Description 06/04/2008 Outpatient Historical [facility] [address] [facility] [address] [place] [phone] Xavier Smith DO [address] [place] [address] [address] [place] [address] Social History Tobacco Use Types Packs/Day Years Used Date Smoking Tobacco: Never Assessed Comments Unknown Sex and Gender Information Value Date Recorded Sex Assigned at Not on file Legal Sex Female 5:28 AM COOK RESTAURANT Gender Identity Not on file Sexual Orientation Not on file documented as of this encounter Plan of Treatment Not on file documented as of this encounter Visit Diagnoses Not on filedocumented in this encounter Additional Health Concerns Infection Onset Date Last Indicated Resolved Time R/O COVID-19 12/15/2021 12/15/2021 12/15/2021 6:37 PM CDT R/O COVID-19 07/19/2022 07/19/2022 07/19/2022 8:51 AM COOK RESTAURANT COVID-19 07/19/2022 07/19/2022 08/08/2022 1:16 AM COOK RESTAURANT documented as of this encounter Care Teams Textile Conservator Relationship Specialty Start Date End Date Tyler Khoury MD [address] [place] [address] PCP - General 10/19/12 05/06/14 documented as of this encounter
--- OUTSIDE RECORDS SUMMARY | 2025-06-11 20:07 | XMS_ITS | Encounter Summary ---
Author Organization [facility] Address [address] [place] [address] Care Team Providers Care Obstetrician/Gynecologist Name Role Phone Tyler Khoury MD Primary Care Provider [phone] Encounter Details Date Type Department Care Team (Late st Contact Info) Description 12/11/2007 Outpatient Historical [facility] [address] [facility] [address] [place] [address] Lito Solis MD [address] [place] [address] [address] [place] [address] Social History Tobacco Use Types Packs/Day Years Used Date Smoking Tobacco: Never Assessed Comments Unknown Sex and Gender Information Value Date Recorded Sex Assigned at Not on file Legal Sex Female 5:28 AM SENIOR CREDIT ANALYST Gender Identity Not on file Sexual Orientation Not on file documented as of this encounter Plan of Treatment Not on file documented as of this encounter Visit Diagnoses Not on filedocumented in this encounter Additional Health Concerns Infection Onset Date Last Indicated Resolved Time R/O COVID-19 12/15/2021 12/15/2021 12/15/2021 6:37 PM CDT R/O COVID-19 07/19/2022 07/19/2022 07/19/2022 8:51 AM SENIOR CREDIT ANALYST COVID-19 07/19/2022 07/19/2022 08/08/2022 1:16 AM SENIOR CREDIT ANALYST documented as of this encounter Care Teams Obstetrician/Gynecologist Relationship Specialty Start Date End Date Tyler Khoury MD [address] [place] [address] PCP - General 10/19/12 05/06/14 documented as of this encounter
--- OUTSIDE RECORDS SUMMARY | 2025-06-11 20:07 | XMS_ITS | Encounter Summary ---
Author Organization [facility] Address [address] [place] [address] Care Team Providers Care Machine Worker Name Role Phone Tyler Khoury MD Primary Care Provider [phone] Encounter Details Date Type Department Care Team (Late st Contact Info) Description 03/18/2008 Outpatient Historical [facility] [address] [facility] [address] [place] [address] Xavier Smith DO [address] [place] [address] [address] [place] [address] Social History Tobacco Use Types Packs/Day Years Used Date Smoking Tobacco: Never Assessed Comments Unknown Sex and Gender Information Value Date Recorded Sex Assigned at Not on file Legal Sex Female 5:28 AM COUNTY RECORDS MANAGEMENT OFFICER Gender Identity Not on file Sexual Orientation Not on file documented as of this encounter Plan of Treatment Not on file documented as of this encounter Visit Diagnoses Not on filedocumented in this encounter Additional Health Concerns Infection Onset Date Last Indicated Resolved Time R/O COVID-19 12/15/2021 12/15/2021 12/15/2021 6:37 PM CDT R/O COVID-19 07/19/2022 07/19/2022 07/19/2022 8:51 AM COUNTY RECORDS MANAGEMENT OFFICER COVID-19 07/19/2022 07/19/2022 08/08/2022 1:16 AM COUNTY RECORDS MANAGEMENT OFFICER documented as of this encounter Care Teams Machine Worker Relationship Specialty Start Date End Date Tyler Khoury MD [address] [place] [address] PCP - General 10/19/12 05/06/14 documented as of this encounter
--- OUTSIDE RECORDS SUMMARY | 2025-06-11 20:07 | XMS_ITS | Encounter Summary ---
Author Organization [facility] Address [address] [place] [address] Care Team Providers Care Combination Building Inspector Name Role Phone Tyler Khoury MD Primary Care Provider [phone] Encounter Details Date Type Department Care Team (Late st Contact Info) Description 04/15/2008 Outpatient Historical [facility] Meredith Rios MD [address] [address] Supervision of Other Normal Social History Tobacco Use Types Packs/Day Years Used Date Smoking Tobacco: Never Assessed Comments Unknown Sex and Gender Information Value Date Recorded Sex Assigned at Not on file Legal Sex Female 5:28 AM LOAN ASSOCIATE Gender Identity Not on file Sexual Orientation Not on file documented as of this encounter Plan of Treatment Not on file documented as of this encounter Procedures Procedure Name Priority Date/Time Associated Diagnosis Comments US GALLBLADDER Timed Study 04/15/2008 11:19 AM CDT documented in this encounter Results * US GALLBLADDER (04/15/2008 11:19 AM CDT) Anatomical Region Laterality Modality Abdomen Other 04/15/2008 11:1 9 AM CDT Narrative 04/15/2008 11:25 AM CDT [facility] [address] [address] Admit Date: 04/15/2008 OLIVA BASILIO Sex: F Admit Prov: ORALIA MEREDITH A Date: 1990 Primary Care Prov: JESS BEGUM CMRN: [id number] Room: [facility] SSN: [id number] IMAGING SERVICES Ordering Prov: N/A Accession Number: [id number] Interpretation Ultrasound gallbladder and biliary tract, 04/15/2008 Indication: Nausea, Findings: Gallbladder is normal in size. No sludge, gallstones, or other intraluminal filling defects are identified. The wall is not thickened and there is no pericholecystic fluid or ascites. No intra or extrahepatic biliary ductal dilatation is seen. Common bile duct measures 5 mm. Survey of the liver demonstrates normal echogenicity and echotexture. The portal vein is patent with normal flow direction. Survey of the right kidney demonstrates no hydronephrosis. Impression: Normal gallbladder and biliary tract ultrasound. . Dictated by: MYCHAL BUCK 04/15/2008 11:20 Electronically signed by: MYCHAL BUCK 04/15/2008 11:24 Procedure Note Mychal Buck - 04/15/[address] [address] Admit Date: 04/15/2008 OLIVA BASILIO Sex: F Admit Prov: MEREDITH BARTON Date: 1990 Primary Care Prov: AISHANOE JESS E CMRN: [id number] [id number] Ordering Prov: N/A Interpretation Ultrasound gallbladder and biliary tract, 04/15/2008 Indication: Nausea, Findings: Gallbladder is normal in size. No sludge, gallstones, orother intraluminal filling defects are identified. The wall is notthickened and there is no pericholecystic fluid or ascites. No intra orextrahepatic biliary ductal dilatation is seen. Common bile duct measures 5 mm.Survey of the liver demonstrates normal echogenicity and echotexture. Theportal vein is patent with normal flow direction. Survey of the rightkidney demonstrates no hydronephrosis. Impression: Normal gallbladder and biliary tract ultrasound. . Dictated by: MYCHAL BUCK 04/15/2008 11:20 Electronically signed by: MYCHAL BUCK 04/15/2008 11:24 Meredith Rios MD ORDERABLES Final Result documented in this encounter Visit Diagnoses Diagnosis Supervision of other normal documented in this encounter Additional Health Concerns Infection Onset Date Last Indicated Resolved Time R/O COVID-19 12/15/2021 12/15/2021 12/15/2021 6:37 PM CDT R/O COVID-19 07/19/2022 07/19/2022 07/19/2022 8:51 AM LOAN ASSOCIATE COVID-19 07/19/2022 07/19/2022 08/08/2022 1:16 AM LOAN ASSOCIATE documented as of this encounter Care Teams Combination Building Inspector Relationship Specialty Start Date End Date Tyler Khoury MD [address] [place] [address] PCP - General 10/19/12 05/06/14 documented as of this encounter
--- OUTSIDE RECORDS SUMMARY | 2025-06-11 20:07 | XMS_ITS | Encounter Summary ---
Author Organization [facility] Address [address] [place] [address] Care Team Providers Care School Psychologist Assistant Name Role Phone Tyler Khoury MD Primary Care Provider [phone] Encounter Details Date Type Department Care Team (Late st Contact Info) Description 11/01/2007 Outpatient Historical [facility] Services [address] [facility] [address] [place] [address] Xavier Smith DO [address] [place] [address] [address] [place] [address] Social History Tobacco Use Types Packs/Day Years Used Date Smoking Tobacco: Never Assessed Comments Unknown Sex and Gender Information Value Date Recorded Sex Assigned at Not on file Legal Sex Female 5:28 AM ASSEMBLER CLIP ON SUNGLASSES Gender Identity Not on file Sexual Orientation Not on file documented as of this encounter Plan of Treatment Not on file documented as of this encounter Visit Diagnoses Not on filedocumented in this encounter Additional Health Concerns Infection Onset Date Last Indicated Resolved Time R/O COVID-19 12/15/2021 12/15/2021 12/15/2021 6:37 PM CDT R/O COVID-19 07/19/2022 07/19/2022 07/19/2022 8:51 AM ASSEMBLER CLIP ON SUNGLASSES COVID-19 07/19/2022 07/19/2022 08/08/2022 1:16 AM ASSEMBLER CLIP ON SUNGLASSES documented as of this encounter Care Teams School Psychologist Assistant Relationship Specialty Start Date End Date Tyler Khoury MD [address] [place] [address] PCP - General 10/19/12 05/06/14 documented as of this encounter
--- OUTSIDE RECORDS SUMMARY | 2025-06-11 20:07 | XMS_ITS | Encounter Summary ---
Author Organization [facility] Address [address] [place] [address] Care Team Providers Care Gear Hobber Name Role Phone Tyler Khoury MD Primary Care Provider [phone] Encounter Details Date Type Department Care Team (Latest Contact Info) Description 01/29/2008 Outpatient Historical [facility] Meredith Rios MD [address] [address] Supervision of Other Normal Social History Tobacco Use Types Packs/Day Years Used Date Smoking Tobacco: Never Assessed Comments Unknown Sex and Gender Information Value Date Recorded Sex Assigned at Not on file Legal Sex Female 5:28 AM SENIOR PROCESS CONTROL TECH Gender Identity Not on file Sexual Orientation Not on file documented as of this encounter Plan of Treatment Not on file documented as of this encounter Procedures Procedure Name Priority Date/Time Associated Diagnosis Comments US OB FOLLOW UP PER FETUS Timed Study 01/29/2008 2:16 PM CDT MATERNAL SERUM QUAD SCREEN Routine 01/29/2008 2:00 PM CDT MATERNAL SERUM QUAD SCREEN Routine 01/29/2008 2:00 PM CDT documented in this encounter Results * US OB FOLLOW UP PER FETUS (01/29/2008 2:16 PM CDT) Anatomical Region Laterality Modality Pelvis Other 01/29/2008 2:16 PM CDT Narrative 02/04/2008 12:47 PM CDT [facility] [address] [address] Admit Date: 01/29/2008 OLIVA BASILIO Sex: F Admit Prov: MEREDITH BARTON Date: 1990 Primary Care Prov: BISHOP BEGUMTCHEN Bonifacio CMRN: [id number] [id number] [facility] Ordering Prov: MEREDITH BARTON Accession Number: [id number] Interpretation PLEASE SEE REPORT FROM [facility] IN AWD (medical records) OR ULTRAVISUAL._ Dictated by: RADIOLOGY, DEPARTMENT O Electronically signed by: RADIOLOGY, DEPARTMENT 02/04/2008 12:47 Transcribed: 01/31/2008 14:15 [facility] Procedure Note Provider, Historical - 02/04/[address] [address] Admit Date: 01/29/2008 OLIVA BASILIO Sex: F Admit Prov: MEREDITH BARTON Date: 1990 Primary Care Prov: JESS BEGUM CMRN: [id number] Room: [facility] SSN: [id number] IMAGING SERVICES Ordering Prov: MEREDITH BARTON Interpretation PLEASE SEE REPORT FROM [facility] A[facility] (medical records) ORULTRAVISUAL._ Dictated by: RADIOLOGY, DEPARTMENT O Electronically signed by: RADIOLOGY, DEPARTMENT 02/04/2008 12:47 Transcribed: 01/31/2008 14:15 [facility] us Meredith Rios MD ORDERABLES Final Result * MATERNAL SERUM QUAD SCREEN (01/29/2008 2:00 PM CDT) PATIENT'S EST DELIVERY DATE 06/12/2008 [facility] GEST CALC METHOD ULTRASOUND [facility] RACE [facility] INSULIN DEPEND DIABETIC NO [facility] PATIENT'S WEIGHT 155 Lb [facility] NUMBER OF FETUS 1 [facility] REPEAT SPECIMEN? NO [facility] HISTORY OF NTD NO [facility] FAMILY HISTORY ng [facility] LAST MENSTRUAL PERIOD 08/31/2007 [facility] MULTI GESTATION PREG no [facility] OTHER RACE INFO ng [facility] HISTORY OF DOWN SYNDROME NOT GIVEN [facility] DONOR EGG NOT GIVEN [facility] Comment: Lab test performed by: [facility] [id number] [address] [facility] [address] ELI STEIN MD TRISOMY 18 RISK <1 IN 5000 [facility] INTERP. QUAD See Result Comment [facility] Comment: THIS IS A SCREENING TEST, NOT A DIAGNOSTIC TEST. NO REAGENT SYSTEM ESTABLISHING THE RISK OF CHROMOSOME ABNORMALITIES DURING HAS BEEN APPROVED BY THE FDA. THIS RISK ASSESSMENT REPORT IS BASED IN PART ON DEMOGRAPHIC DATA PROVIDED BY THE ORDERING PHYSICIAN. PLEASE NOTIFY THE LABORATORY PROMPTLY IF ANY DATA ARE INCORRECT. FOR ASSISTANCE WITH RECALCULATIONS, PLEASE CALL YOUR LOCAL [facility]. FOR ASSISTANCE WITH INTERPRETATION OF THESE RESULTS, PLEASE CONTACT YOUR LOCAL [facility] GENETIC COUNSELOR OR CALL [phone]). INTERPRETIVE CUT-OFFS SCREEN POSITIVE FOR OPEN NTD: > OR = 2.50 ADJUSTED MOM > OR = 1.90 ADJUSTED MOM FOR INSULIN-DEPENDENT DIABETICS > OR = 4.00 ADJUSTED MOM FOR TWINS > OR = 3.50 ADJUSTED MOM FOR TWINS INSULIN-DEPENDENT DIABETICS > OR = 4.50 ADJUSTED MOM FOR TRIPLETS SCREEN POSITIVE FOR DOWN SYNDROME:QUAD RISK DOWN SYNDROME THAT EQUALS OR EXCEEDS 1 IN 270 SCREEN POSITIVE FOR TRISOMY 18:MSS3 TRISOMY 18 RISK THAT EQUALS OR EXCEEDS 1 IN 100 HCG, INTACT 17.26 IU/mL [facility] AGE RISK DOWN SYNDROME 1 IN 1187 [facility] ADJ MULTIPLE OF MED, INHIBIN A 1.00 [facility] ESTRIOL UNCONJUGATED 8.93 ng/mL [facility] RISK INTERP See Result Comment [facility] Comment: SCREEN NEGATIVE FOR OPEN NTD, DOWN SYNDROME AND TRISOMY 18. ADJ MULTIPLE MED HCG 1.15 [facility] AFP MATERNAL SCREEN 69.2 ng/mL [facility] GESTATIONAL AGE 20.7 Weeks [facility] ADJ MULT MED ESTRIOL 1.27 [facility] RISK FOR DOWN'S <1 IN 5000 [facility] COMMENT, QUAD See Result Comment [facility] Comment: THIS PATIENT'S АННА (ESTIMATED DATE OF DELIVERY) WAS USED TO CALCULATE THE GESTATIONAL AGE. PERFORMANCE OF MATERNAL SERUM AFP, HCG, ESTRIOL, AND DIMERIC INHIBIN A PROVIDES A USEFUL SCREENING TEST FOR DETECTION OF OPEN NEURAL TUBE DEFECTS AND SOME CHROMOSOMAL ABNORMALITIES. IT SHOULD BE NOTED THAT NORMAL RESULTS CAN NEVER GUARANTEE THE OF A NORMAL BABY AND THAT 2 TO 3 PERCENT OF [place] HAVE SOME TYPE OF PHYSICAL OR MENTAL DEFECT, MANY OF WHICH ARE UNDETECTABLE THROUGH ANY KNOWN DIAGNOSTIC TECHNIQUE. AFP RISK OF OPEN NTD 1 IN 2269 [facility] ADJ MULTIPL MED AFP 1.18 [facility] INHIBIN A 213.4 pg/mL [facility] Blood specimen (specimen) 01/29/2008 2:00 PM CDT 01/29/2008 3:07 PM CDT Meredith Rios MD CHEMISTRY ORDERABLES Edited Performing Organization Address City/[facility] Co de Phone Number [facility] CLIA# [id number] [address] [place] [address] * MATERNAL SERUM QUAD SCREEN (01/29/2008 2:00 PM CDT) Blood specimen (specimen) 01/29/2008 2:00 PM CDT 01/29/2008 2:02 PM CDT Meredith Rios MD CHEMISTRY ORDERABLES Final Re sult INTERFACE SYSTEM Refer to clinic/hospital department documented in this encounter Visit Diagnoses Diagnosis Supervision of other normal documented in this encounter Additional Health Concerns Infection Onset Date Last Indicated Resolved Time R/O COVID-19 12/15/2021 12/15/2021 12/15/2021 6:37 PM CDT R/O COVID-19 07/19/2022 07/19/2022 07/19/2022 8:51 AM SENIOR PROCESS CONTROL TECH COVID-19 07/19/2022 07/19/2022 08/08/2022 1:16 AM SENIOR PROCESS CONTROL TECH documented as of this encounter Care Teams Gear Hobber Relationship Specialty Start Date End Date Tyler Khoury MD [address] [place] [address] PCP - General 10/19/12 05/06/14 documented as of this encounter
--- OUTSIDE RECORDS SUMMARY | 2025-06-11 20:07 | XMS_ITS | Encounter Summary ---
Author Organization [employer] Address [address] [place] [address] Care Team Providers Care Soft Hat Binder Name Role Phone Tyler Khoury MD Primary Care Provider [phone] Encounter Details Date Type Department Care Team (Latest Contact Info) Description 10/31/2007 Outpatient Historical [facility] Meredith Rios MD [address] [address] Supervision of Other Normal Social History Tobacco Use Types Packs/Day Years Used Date Smoking Tobacco: Never Assessed Comments Unknown Sex and Gender Information Value Date Recorded Sex Assigned at Not on file Legal Sex Female 5:28 AM FORGE TENDER Gender Identity Not on file Sexual Orientation Not on file documented as of this encounter Plan of Treatment Not on file documented as of this encounter Procedures Procedure Name Priority Date/Time Associated Diagnosis Comments HIV DETECTION W/REFLX CONFIRMATION Routine 10/31/2007 3:00 PM CDT TSH WITH REFLEX FT4 AND FT3 Routine 10/31/2007 3:00 PM CDT HEPATITIS C AB W/CONFIRMATION Routine 10/31/2007 3:00 PM CDT HEPATITIS B SURFACE ANTIGEN Routine 10/31/2007 3:00 PM CDT RUBELLA IGG Routine 10/31/2007 3:00 PM CDT CBC WITH DIFFERENTIAL Routine 10/31/2007 3:00 PM CDT DRUG SCREEN, URINE Routine 10/31/2007 3: 00 PM CDT RPR Routine 10/31/2007 3:00 PM CDT URINALYSIS W/REFLEX MICROSCOPIC Routine 10/31/2007 3:00 PM CDT URINE CULTURE Routine 10/31/2007 3:00 PM CDT documented in this encounter Results * DRUG SCREEN, URINE (10/31/2007 3:00 PM CDT) COMMENT, TOXICOLOGY See Separate Comment [facility] Comment: The urine sample was not handled as a legal specimen and was received without a chain of custody. The results should be used only for medical purposes. A confirmation is recommended for all presumptive positive results. A negative result indicates the analyte, if present, is below the screening threshold. Drug Ref. Range Screening Threshold Amphetamines Negative 500 ng/mL Barbiturates Negative 200 ng/mL Benzodiazepines Negative 100 ng/mL Cannabinoids Negative 50 ng/mL Cocaine Metabolite Negative 300 ng/mL Opiate Negative 300 ng/mL Phencyclidine Negative 25 ng/mL AMPHETAMINE QUAL, URINE Negative [facility] BARBITURATE QUAL, URINE Negative [facility] BENZODIAZEPINE QUAL, URINE Negative [facility] CANNABINOIDS QUAL, URINE Negative [facility] COCAINE QUAL URINE Negative [facility] OPIATE QUAL, URINE Negative [facility] PCP QUAL, URINE Negative [facility] Urine specimen (specimen) 10/31/2007 3:00 PM CDT 10/31/2007 3:01 PM CDT us Meredith Rios MD URINE ORDERABLES Edited [facility] [address] [place] [address] * URINE CULTURE (10/31/2007 3:00 PM CDT) PRELIMINARY REPORT Pending INTERFACE SYSTEM FINAL REPORT No growth INTERFA CE SYSTEM 10/31/2007 3:00 PM CDT 10/31/2007 5:35 PM CDT Result [facility] Meredith Rios MD MICROBIOLOGY - GENERAL ORDERA BLES Final Result Performing Organization Address [facility] Phone Number INTERFACE SYSTEM Refer to clinic/hospital department * URINALYSIS (10/31/2007 3:00 PM CDT) COLOR UA Yellow [facility] NITRITE UA Negative Negative [facility] BILIRUBIN UA Negative Negative [facility] PH UA 6.5 5.0 - 8.0 [facility] KETONES UA Negative Negative [facility] CLARITY UA Clear Clear [facility] BLOOD UA Negative Negative [facility] PROTEIN UA Negative Negative [facility] LEUKOCYTE ESTERASE UA Negative Negative [facility] UROBILINOGEN UA <1 <1 mg/dL [facility] SPECIFIC GRAVITY UA 1.015 1.001 - 1.035 [facility] GLUCOSE UA Negative Negative [facility] Urine, clean catch 10/31/2007 3:00 PM CDT 10/31/2007 3:01 PM CDT Meredith Rios MD URINE ORDERABLES Final Result Performing Organization Address [facility] de Phone Number [facility] [address] [place] [address] * TSH WITH REFLEX FT4 AND FT3 (10/31/2007 3:00 PM CDT) TSH 0.57 0.27 - 4.20 uU/mL [facility] Blood specimen (specimen) 10/31/2007 3:00 PM CDT 10/31/2007 3:01 PM CDT Result [facility] Meredith Rios MD CHEMISTRY ORDERABLES Final Re sult Performing Organization Address [facility] Co de Phone Number [facility] [address] [place] [address] * HEPATITIS C AB WITH CONFIRMATION BY RIBA (10/31/2007 3:00 PM CDT) SIGNAL TO CUT OFF 0.05 <1.00 [facility] Comment: Lab test performed by: [email or web address] LAYLA JAMACydan [id number] ELI STEIN MD HEPATITIS C AB NON-REACTI VE NON-REACT [facility] Blood specimen (specimen) 10/31/2007 3:00 PM CDT 10/31/2007 3:01 PM CDT us Meredith Rios MD CHEMISTRY ORDERABLES Final Re sult Performing Organization Address [facility] de Phone Number [facility] [address] [place] [address] * HIV ANTIBODY W/REFLX CONFIRMATION (10/31/2007 3:00 PM CDT) Pathologist [facility] HIV-1 AND 2 ABS NON-REACT AALN NON-REACT ALAN [facility] Comment: A NON-REACTIVE HIV 1/2 ANTIBODY RESULT DOES NOT EXCLUDE HIV INFECTION SINCE THE TIME FRAME FOR SEROCONVERSION IS VARIABLE. IF ACUTE HIV INFECTION IS SUSPECTED, ANTIBODY RETESTING AND NUCLEIC ACID AMPLIFICATION (HIV DNA/RNA) TESTING IS RECOMMENDED. Lab test performed by: [employer] ANDRIY [id number] [address] JAMARailpodDiomedesAuthenticlick [id number] ELI STEIN MD Effective January 23, 2007, HIV 1/2 Antibody Screen with Reflexed Confirmation has replaced HIV-1 Antibody Screen. HIV-1 Antibody Screen is no longer offered due to lack of available kits from the [employer]. Blood specimen (specimen) 10/31/2007 3:00 PM CDT 10/31/2007 3:01 PM CDT us Meredith Rios MD CHEMISTRY ORDERABLES Final Re sult Performing Organization Address [facility] Co de Phone Number [facility] [address] [place] [address] * (ABNORMAL) CBC WITH DIFFERENTIAL (10/31/2007 3:00 PM CDT) MPV 10.8 9.3 - 12.4 fL [facility] HEMATOCRIT 42.0 35.5 - 44.0 % [facility] RDW-STDEV 44.5 37.1 - 48.7 fL [facility] RBC 5.14(H) 3.90 - 4.90 M/uL [facility] MCHC 34.5 31.5 - 35.5 % [facility] PLATELETS 241 140 - 350 K/uL [facility] MCV 81.7(L) 82.0 - 99.0 fL [facility] HEMOGLOBIN 14.5 11.8 - 14.8 g/dL [facility] RDW 14.9(H) 11.5 - 14.5 % [facility] WBC 7.6 4.0 - 9.8 K/uL [facility] MCH 28.2 27.2 - 32.6 pg [facility] EOSINOPHILS 1 0 - 7 % [facility] EOSINOPHIL ABSOLUTE 0.11 0.00 - 0.70 K/uL [facility] LYMPHOCYTES 32 16 - 45 % [facility] LYMPHOCYTE ABSOLUTE 2.47 0.70 - 4.50 K/uL [facility] BASOPHILS 0 0 - 2 % [facility] BASOPHILS ABSOLUTE 0.02 0.00 - 0.20 K/uL [facility] MONOCYTES 6 3 - 13 % [facility] MONOCYTE ABSOLUTE 0.48 0.10 - 1.30 K/uL [facility] NEUTROPHILS 60 45 - 70 % [facility] NEUTROPHIL ABSOLUTE 4.54 1.90 - 7.00 K/uL [facility] Blood specimen (specimen) 10/31/2007 3:00 PM CDT 10/31/2007 3:01 PM CDT Result [facility] Meredith Rios MD HEMATOLOGY ORDERABLES Edited Performing Organization Address [facility] Co de Phone Number [facility] [address] [place] [address] * HEPATITIS B SURFACE ANTIGEN (10/31/2007 3:00 PM CDT) HEPATITIS B SURFACE AG NON-REACTI VE NON-REACT [facility] Comment: Lab test performed by: [employer] WILEYRailpodDiomedes [id number] [id number] ELI STEIN MD Blood specimen (specimen) 10/31/2007 3:00 PM CDT 10/31/2007 3:01 PM CDT Result [facility] Meredith Rios MD CHEMISTRY ORDERABLES Final Re sult Performing Organization Address [facility] Co de Phone Number [facility] [address] [place] [address] * RUBELLA IGG (10/31/2007 3:00 PM CDT) [facility] RUBELLA IGG 1.[address] [facility] Comment: EIA VALUE EXPLANATION OF TEST RESULTS --------- <0.91 NEGATIVE - NO RUBELLA IGG ANTIBODY DETECTED. 0.91 - 1.09 EQUIVOCAL > OR = 1.10 POSITIVE - RUBELLA IGG ANTIBODY DETECTED. THE PRESENCE OF RUBELLA IGG ANTIBODY SUGGESTS IMMUNIZATION OR PAST OR CURRENT INFECTION WITH RUBELLA VIRUS. Lab test performed by: [employer] ANDRIY [id number] [address] [id number] ELI STEIN MD Blood specimen (specimen) 10/31/2007 3:00 PM CDT 10/31/2007 3:01 PM CDT Result [facility] Meredith Rios MD CHEMISTRY ORDERABLES Final Re sult Performing Organization Address City/[facility]/ZIP Co de Phone Number [facility] [address] [place] [address] * RPR (10/31/2007 3:00 PM CDT) RPR NON-REACTI VE NON-REACT [facility] Comment: Lab test performed by: [employer] ANDRIY [id number] [place] [address] ELI STEIN MD Blood specimen (specimen) 10/31/2007 3:00 PM CDT 10/31/2007 3:01 PM CDT Meredith Rios MD CHEMISTRY ORDERABLES Final Re sult Performing Organization Address [facility] Co de Phone Number [facility] [address] [place] [address] documented in this encounter Visit Diagnoses Diagnosis Supervision of other normal documented in this encounter Additional Health Concerns Infection Onset Date Last Indicated Resolved Time R/O COVID-19 12/15/2021 12/15/2021 12/15/2021 6:37 PM CDT R/O COVID-19 07/19/2022 07/19/2022 07/19/2022 8:51 AM FORGE TENDER COVID-19 07/19/2022 07/19/2022 08/08/2022 1:16 AM FORGE TENDER documented as of this encounter Care Teams Soft Hat Binder Relationship Specialty Start Date End Date Tyler Khoury MD [address] [place] [address] PCP - General 10/19/12 05/06/14 documented as of this encounter
--- OUTSIDE RECORDS SUMMARY | 2025-06-11 20:07 | XMS_ITS | Encounter Summary ---
Author Organization [employer] Address [address] [place] [address] Care Team Providers Care Boat Wrapper Name Role Phone Tyler Khoury MD Primary Care Provider [phone] Encounter Details Date Type Department Care Team (Late st Contact Info) Description 05/21/2008 Outpatient Historical [facility] Xavier Smith DO [address] [place] [address] Thalia Irizarry MD [address] [place] [address] Social History Tobacco Use Types Packs/Day Years Used Date Smoking Tobacco: Never Assessed Comments Unknown Sex and Gender Information Value Date Recorded Sex Assigned at Not on file Legal Sex Female 5:28 AM QUALITY SYSTEMS MANAGER Gender Identity Not on file Sexual Orientation Not on file documented as of this encounter Plan of Treatment Not on file documented as of this encounter Visit Diagnoses Not on filedocumented in this encounter Additional Health Concerns Infection Onset Date Last Indicated Resolved Time R/O COVID-19 12/15/2021 12/15/2021 12/15/2021 6:37 PM CDT R/O COVID-19 07/19/2022 07/19/2022 07/19/2022 8:51 AM QUALITY SYSTEMS MANAGER COVID-19 07/19/2022 07/19/2022 08/08/2022 1:16 AM QUALITY SYSTEMS MANAGER documented as of this encounter Care Teams Boat Wrapper Relationship Specialty Start Date End Date Tyler Khoury MD [address] [place] [address] PCP - General 10/19/12 05/06/14 documented as of this encounter
--- OUTSIDE RECORDS SUMMARY | 2025-06-11 20:07 | XMS_ITS | Encounter Summary ---
Author Organization [employer] Address [address] [place] [address] Care Team Providers Care Director Of Restaurant Operations Name Role Phone Tyler Khoury MD Primary Care Provider [phone] Encounter Details Date Type Department Care Team (Late st Contact Info) Description 01/24/2008 Outpatient Historical [facility] Xavier Smith DO [address] [place] [address] [address] [place] [address] Lito Solis MD [address] [place] [address] Social History Tobacco Use Types Packs/Day Years Used Date Smoking Tobacco: Never Assessed Comments Unknown Sex and Gender Information Value Date Recorded Sex Assigned at Not on file Legal Sex Female 5:28 AM GILL BOX TENDER Gender Identity Not on file Sexual Orientation Not on file documented as of this encounter Plan of Treatment Not on file documented as of this encounter Procedures Procedure Name Priority Date/Time Associated Diagnosis Comments URINALYSIS W/REFLEX MICROSCOPIC Stat 01/24/2008 12:58 AM CDT documented in this encounter Results * (ABNORMAL) URINALYSIS (01/24/2008 12:58 AM CDT) SPECIFIC GRAVITY UA 1.015 1.001 - 1.035 [facility] GLUCOSE UA Negative Negative [facility] COLOR UA Yellow [facility] NITRITE UA Negative Negative [facility] BILIRUBIN UA Negative Negative [facility] PH UA 7.0 5.0 - 8.0 [facility] KETONES UA Negative Negative [facility] CLARITY UA Cloudy(A) Clear [facility] BLOOD UA Negative Negative [facility] PROTEIN UA Negative Negative [facility] LEUKOCYTE ESTERASE UA Negative Negative [facility] UROBILINOGEN UA <1 <1 mg/dL [facility] AMORPHOUS PHOSPHATES, URINE Many /HPF [facility] BACTERIA UA 1+(A) None Seen /HPF [facility] WBC UA 0-5 0 - 5 /HPF [facility] EPITHELIAL CELLS, URINE 2-5 /HPF [facility] RBC UA 0-2 0 - 2 /HPF [facility] 01/24/2008 12:5 8 AM CDT 01/24/2008 1:08 AM CDT us Lito Solis MD URINE ORDERABLES Edited [facility] CLIA# [id number] [address] [place] [address] documented in this encounter Visit Diagnoses Not on filedocumented in this encounter Additional Health Concerns Infection Onset Date Last Indicated Resolved Time R/O COVID-19 12/15/2021 12/15/2021 12/15/2021 6:37 PM CDT R/O COVID-19 07/19/2022 07/19/2022 07/19/2022 8:51 AM GILL BOX TENDER COVID-19 07/19/2022 07/19/2022 08/08/2022 1:16 AM GILL BOX TENDER documented as of this encounter Care Teams Director Of Restaurant Operations Relationship Specialty Start Date End Date Tyler Khoury MD [address] [place] [address] PCP - General 10/19/12 05/06/14 documented as of this encounter
--- OUTSIDE RECORDS SUMMARY | 2025-06-11 20:07 | XMS_ITS | Encounter Summary ---
Author Organization [facility] Address [address] [facility] Attn: Epic Prelude ADT DARON BULLARD [address] Care Team Providers Care Design Painter Name Role Phone Tyler Khoury MD Primary Care Provider [phone] Encounter Details Date Type Department Care Team (Late st Contact Info) Description 02/29/2008 Outpatient Historical [facility] Social History Tobacco Use Types Packs/Day Years Used Date Smoking Tobacco: Never Assessed Comments Unknown Sex and Gender Information Value Date Recorded Sex Assigned at Not on file Legal Sex Female 5:28 AM SENIOR MANAGER Gender Identity Not on file Sexual Orientation Not on file documented as of this encounter Plan of Treatment Not on file documented as of this encounter Visit Diagnoses Not on filedocumented in this encounter Additional Health Concerns Infection Onset Date Last Indicated Resolved Time R/O COVID-19 12/15/2021 12/15/2021 12/15/2021 6:37 PM CDT R/O COVID-19 07/19/2022 07/19/2022 07/19/2022 8:51 AM SENIOR MANAGER COVID-19 07/19/2022 07/19/2022 08/08/2022 1:16 AM SENIOR MANAGER documented as of this encounter Care Teams Design Painter Relationship Specialty Start Date End Date Tyler Khoury MD [address] [place] [address] PCP - General 10/19/12 05/06/14 documented as of this encounter
--- OUTSIDE RECORDS SUMMARY | 2025-06-11 20:07 | XMS_ITS | Encounter Summary ---
Author Organization [facility] Address [address] [place] [address] Care Team Providers Care Swine Genetics Researcher Name Role Phone Tyler Khoury MD Primary Care Provider [phone] Encounter Details Date Type Department Care Team (Late st Contact Info) Description 10/31/2007 Outpatient Historical [facility] [address] [place] [address] Marek Silverio MD [address] [place] [address] Social History Tobacco Use Types Packs/Day Years Used Date Smoking Tobacco: Never Assessed Comments Unknown Sex and Gender Information Value Date Recorded Sex Assigned at Not on file Legal Sex Female 5:28 AM MACHINE BRUSHER Gender Identity Not on file Sexual Orientation Not on file documented as of this encounter Plan of Treatment Not on file documented as of this encounter Visit Diagnoses Not on filedocumented in this encounter Additional Health Concerns Infection Onset Date Last Indicated Resolved Time R/O COVID-19 12/15/2021 12/15/2021 12/15/2021 6:37 PM CDT R/O COVID-19 07/19/2022 07/19/2022 07/19/2022 8:51 AM MACHINE BRUSHER COVID-19 07/19/2022 07/19/2022 08/08/2022 1:16 AM MACHINE BRUSHER documented as of this encounter Care Teams Swine Genetics Researcher Relationship Specialty Start Date End Date Tyler Khoury MD [address] [place] [address] PCP - General 10/19/12 05/06/14 documented as of this encounter
--- OUTSIDE RECORDS SUMMARY | 2025-06-11 20:07 | XMS_ITS | Encounter Summary ---
Author Organization [facility] Address [address] [place] [address] Care Team Providers Care Chlorine Plant Operator Name Role Phone Tyler Khoury MD Primary Care Provider [phone] Encounter Details Date Type Department Care Team (Late st Contact Info) Description 01/11/2008 Outpatient Historical [facility] [address] [facility] [address] [place] [address] Xavier Smith DO [address] [place] [address] [address] [place] [address] Social History Tobacco Use Types Packs/Day Years Used Date Smoking Tobacco: Never Assessed Comments Unknown Sex and Gender Information Value Date Recorded Sex Assigned at Not on file Legal Sex Female 5:28 AM SALES BROKER Gender Identity Not on file Sexual Orientation Not on file documented as of this encounter Plan of Treatment Not on file documented as of this encounter Visit Diagnoses Not on filedocumented in this encounter Additional Health Concerns Infection Onset Date Last Indicated Resolved Time R/O COVID-19 12/15/2021 12/15/2021 12/15/2021 6:37 PM CDT R/O COVID-19 07/19/2022 07/19/2022 07/19/2022 8:51 AM SALES BROKER COVID-19 07/19/2022 07/19/2022 08/08/2022 1:16 AM SALES BROKER documented as of this encounter Care Teams Chlorine Plant Operator Relationship Specialty Start Date End Date Tyler Khoury MD [address] [place] [address] PCP - General 10/19/12 05/06/14 documented as of this encounter
--- OUTSIDE RECORDS SUMMARY | 2025-06-11 20:07 | XMS_ITS | Encounter Summary ---
Author Organization [employer] Address [address] [place] [address] Care Team Providers Care Bottom Sprayer Name Role Phone Tyler Khoury MD Primary Care Provider [phone] Encounter Details Date Type Department Care Team (Late st Contact Info) Description 05/14/2008 Outpatient Historical [facility] IN [facility] Xavier Smith DO [address] [place] [address] [address] [place] [address] Lito Solis MD [address] [place] [address] Social History Tobacco Use Types Packs/Day Years Used Date Smoking Tobacco: Never Assessed Comments Unknown Sex and Gender Information Value Date Recorded Sex Assigned at Not on file Legal Sex Female 5:28 AM THREADER OPERATOR Gender Identity Not on file Sexual Orientation Not on file documented as of this encounter Plan of Treatment Not on file documented as of this encounter Visit Diagnoses Not on filedocumented in this encounter Additional Health Concerns Infection Onset Date Last Indicated Resolved Time R/O COVID-19 12/15/2021 12/15/2021 12/15/2021 6:37 PM CDT R/O COVID-19 07/19/2022 07/19/2022 07/19/2022 8:51 AM THREADER OPERATOR COVID-19 07/19/2022 07/19/2022 08/08/2022 1:16 AM THREADER OPERATOR documented as of this encounter Care Teams Bottom Sprayer Relationship Specialty Start Date End Date Tyler Khoury MD [address] [place] [address] PCP - General 10/19/12 05/06/14 documented as of this encounter
--- OUTSIDE RECORDS SUMMARY | 2025-06-11 20:07 | XMS_ITS | Encounter Summary ---
Author Organization [facility] Address [address] [place] [address] Care Team Providers Care Duplicating Machine Servicer Name Role Phone Tyler Khoury MD Primary Care Provider [phone] Encounter Details Date Type Department Care Team (Late st Contact Info) Description 06/03/2008 Outpatient Historical [facility] [address] [facility] [address] [place] [address] Xavier Smith DO [address] [place] [address] [address] [place] [address] Social History Tobacco Use Types Packs/Day Years Used Date Smoking Tobacco: Never Assessed Comments Unknown Sex and Gender Information Value Date Recorded Sex Assigned at Not on file Legal Sex Female 5:28 AM PRICE LISTER Gender Identity Not on file Sexual Orientation Not on file documented as of this encounter Plan of Treatment Not on file documented as of this encounter Visit Diagnoses Not on filedocumented in this encounter Additional Health Concerns Infection Onset Date Last Indicated Resolved Time R/O COVID-19 12/15/2021 12/15/2021 12/15/2021 6:37 PM CDT R/O COVID-19 07/19/2022 07/19/2022 07/19/2022 8:51 AM PRICE LISTER COVID-19 07/19/2022 07/19/2022 08/08/2022 1:16 AM PRICE LISTER documented as of this encounter Care Teams Duplicating Machine Servicer Relationship Specialty Start Date End Date Tylre Khoury MD [address] [place] [address] PCP - General 10/19/12 05/06/14 documented as of this encounter
--- OUTSIDE RECORDS SUMMARY | 2025-06-11 20:07 | XMS_ITS | Encounter Summary ---
Author Organization [facility] Address [address] [place] [address] Care Team Providers Care Forge Utility Worker Name Role Phone Tyler Khoury MD Primary Care Provider [phone] Encounter Details Date Type Department Care Team (Late st Contact Info) Description 12/11/2007 Outpatient Historical [facility] [address] [facility] [address] [place] [address] Lito Solis MD [address] [place] [address] [address] [place] [address] Social History Tobacco Use Types Packs/Day Years Used Date Smoking Tobacco: Never Assessed Comments Unknown Sex and Gender Information Value Date Recorded Sex Assigned at Not on file Legal Sex Female 5:28 AM PACKAGE PICK UP Gender Identity Not on file Sexual Orientation Not on file documented as of this encounter Plan of Treatment Not on file documented as of this encounter Visit Diagnoses Not on filedocumented in this encounter Additional Health Concerns Infection Onset Date Last Indicated Resolved Time R/O COVID-19 12/15/2021 12/15/2021 12/15/2021 6:37 PM CDT R/O COVID-19 07/19/2022 07/19/2022 07/19/2022 8:51 AM PACKAGE PICK UP COVID-19 07/19/2022 07/19/2022 08/08/2022 1:16 AM PACKAGE PICK UP documented as of this encounter Care Teams Forge Utility Worker Relationship Specialty Start Date End Date Tyler Khoury MD [address] [place] [address] PCP - General 10/19/12 05/06/14 documented as of this encounter
--- OUTSIDE RECORDS SUMMARY | 2025-06-11 20:07 | XMS_ITS | Encounter Summary ---
Author Organization [facility] Address [address] [place] [address] Care Team Providers Care Ore Dryer Name Role Phone [place] Khoury MD Primary Care Provider [phone] Encounter Details Date Type Department Care Team (Late st Contact Info) Description 07/23/[address] [facility] [address] [place] [phone] Xavier Smith DO [address] [place] [address] [address] [place] [address] Social History Tobacco Use Types Packs/Day Years Used Date Smoking Tobacco: Never Assessed Comments Unknown Sex and Gender Information Value Date Recorded Sex Assigned at Not on file Legal Sex Female 5:28 AM WILDLIFE CONTROL AGENT Gender Identity Not on file Sexual Orientation Not on file documented as of this encounter Plan of Treatment Not on file documented as of this encounter Visit Diagnoses Not on filedocumented in this encounter Additional Health Concerns Infection Onset Date Last Indicated Resolved Time R/O COVID-19 12/15/2021 12/15/2021 12/15/2021 6:37 PM CDT R/O COVID-19 07/19/2022 07/19/2022 07/19/2022 8:51 AM WILDLIFE CONTROL AGENT COVID-19 07/19/2022 07/19/2022 08/08/2022 1:16 AM WILDLIFE CONTROL AGENT documented as of this encounter Care Teams Ore Dryer Relationship Specialty Start Date End Date [place] Khoury MD [address] [place] [address] PCP - General 10/19/12 05/06/14 documented as of this encounter
--- OUTSIDE RECORDS SUMMARY | 2025-06-11 20:07 | XMS_ITS | Clinical Summary ---
Author Organization [facility] Address [address] [place] [address] Care Team Providers Care Batting Machine Operator Insulation Name Role Phone Pcp, None Primary Care Provider Unavailabl e Source Comments [facility],non-owned Affiliates and Associated Physician Practices is amultiple site organization consisting of ambulatory clinics and hospital sitesin [place], [place], [place] and [place]. This disclosure is being madepursuant to the Care Everywhere program and may not contain all information available regarding this patient. Last updated 18.[facility] Allergies Active Allergy Reactions Criticality Noted Date Comments Prochlorperazine Psychiatric 03/03/2014 Medications * Be aware that medications may not be up to date on this document. Alwaysverify current medications with the patient. naproxen sodium (ANAPROX DS) 550 MG tablet Take 1 Tab by mouth 2 times daily as needed for Pain. 20 Tab 0 4 Active predniSONE (DELTASONE) 20 MG tablet Take 2 Tabs by mouth once daily 10 Tab 0 6 Active lidocaine (LIDODERM) 5 % patch 1 Patch once daily 30 Patch 0 6 Active metoclopramide (Reglan) 10 MG tablet Take 1 (one) tablet by mouth 3 times daily before meals 30 tablet 4 Active diclofenac sodium EC (Voltaren) 50 MG tablet Take 1 (one) tablet by mouth 3 times daily as needed 20 tablet 5 Active cyclobenzaprine (Flexeril) 5 MG tablet Take 1 (one) tablet by mouth 3 times daily as needed (Muscle spasms) 15 tablet 5 Active ondansetron, disintegrating, (Zofran ODT) 4 MG tablet Take 1 (one) tablet by mouth every 6 hours as needed for Nausea/Vomit ing Allow tablet to dissolve on the tongue 10 tablet 5 Active cyclobenzaprine (FLEXERIL) 10 MG tablet Take 1 Tab by mouth 3 times daily as needed for Muscle Spasms 15 Tab 0 6 05/22/20 25 Discontinue d(Tx Complete) cyclobenzaprine (Flexeril) 10 MG tablet Take 1 (one) tablet by mouth 3 times daily as needed for Muscle Spasms 20 tablet 5 05/29/20 25 Active Problems No known active problems Encounters Date Type Department Care Team Description 06/06/2025 10:30 PM CDT - 06/07/2025 12:07 AM CDT Emergency ER at [facility] [address] [place] [address] Rupert Joiner DO Sprain of acromioclavicular joint, left, initial encounter (Primary Dx); Acute pain of left shoulder; QT prolongation Discharge Disposition: Home or Self Care 06/06/2025 Travel 05/22/2025 11:16 PM CDT - 05/22/2025 11:48 PM CDT Emergency ER at [address] [address] Midline low back pain without sciatica, unspecified chronicity Discharge Disposition: Home or Self Care 05/22/2025 Travel from Last 3 Months Family History Medical History Relation Name Comments Hypertension Mother Relation Name Status Comments Mother Social History Tobacco Use Types Packs/Day Years Used Date Smoking Tobacco: Every Day Cigarettes 0.5 15 Smokeless Tobacco: Never Tobacco Cessation:Ready to Q uit: Not Asked; Counseling Given: Not Answered Alcohol Use Standard Drinks/Week Comments Yes 0 (1 standard drink = 0.6 oz pur e alcohol) socially Comments No Sex and Gender Information Value Date Recorded Sex Assigned at Not on file Legal Sex Female 5:36 AM WEIGHTS AND MEASURES INSPECTOR Gender Identity Not on file Sexual Orientation Not on file Last Filed Vital Signs Vital Sign Reading Time Taken Comments Blood Pressure 123/88 06/06/2025 11:53 PM CDT Pulse 90 06/06/2025 11:53 PM CDT Temperature 36.7 C (98.1 F) 06/06/2025 10:39 PM CDT Respiratory Rate 16 06/06/2025 10:3 9 PM CDT Oxygen Saturation 96% 06/06/2025 11: 53 PM CDT Inhaled Oxygen Concentration - - Weight 57.6 kg (126 lb 14.4 oz) 025 10:39 PM CDT Height 162.6 cm (5' 4) 06/06/2025 10:3 9 PM CDT Body Mass Index 21.78 06/06/2025 10:39 PM CDT Plan of Treatment Health Maintenance Due Date Last Done Comments HIV SCREENING 11/05/2003 HEPATITIS C SCREENING 10/31/2006 DTAP/TDAP/TD VACCINES (1 - Tdap) 11/05/2007 HEPATITIS B VACCINE (1 of 3 - 19+ 3-dose series) 11/05/2007 PNEUMOCOCCAL VACCINE (1 of 2 - PCV) 11/05/2007 PAP SMEAR 2009 HPV VACCINE (1 - 3-dose SCDM series) 11/05/2015 DEPRESSION SCREENING 08/22/2024 COVID-19 VACCINE (1 - 2023-2 5 season) 2025 INFLUENZA VACCINE (#1) 2025 ZOSTER VACCINE (1 of 2) 2038 HIB VACCINE Aged Out No longer eligi ble based on patient's age to complete this topic MENINGOCOCCAL (Group B) VACC INE SHARED DECISION-MAKING Aged Out No longer eligibl e based on patient's age to complete this topic MENINGOCOCCAL GROUPS A/C/Y/W VACCINE Aged Out No longer eligible b ased on patient's age to complete this topic Procedures Procedure Name Priority Date/Time Associated Diagnosis Comments XR SHOULDER LEFT 2VW OR MORE STAT 06/06/2025 11:31 PM CDT Acute pain of left shoulder XR LUMBAR SPINE 2 OR 3VW STAT 05/23/2025 5:03 AM CDT Midline low back pain without sciatica, unspecified chronicity from Last 3 Months Results * XR Shoulder Left 2Vw or More (06/06/2025 11:31 PM CDT) Anatomical Region Laterality Modality Upper Extremity Radiographic Kassandra ging 06/07/2025 8:12 AM CDT Impressions 06/07/2025 8:12 AM CDT IMPRESSION: Negative. . > Interpreting Provider: Taj Merida MD on 06/07/2025 8:12 AM Narrative 06/07/2025 8:12 AM CDT PROCEDURE: XR SHOULDER LEFT 2VW OR MORE COMPARISON: No relevant available comparison. CLINICAL INFORMATION (none relevant/not provided if blank): Indication: M25.512: Acute pain of left shoulder Additional History: FINDINGS: There is no evidence of fracture or dislocation. No other significant bone, joint, or soft tissue abnormality is identified. Procedure Note Taj Merida MD - 06/07/2025 PROCEDURE: XR SHOULDER LEFT 2VW OR MORE COMPARISON: No relevant available comparison. CLINICAL INFORMATION (none relevant/not provided if blank): Indication: M25.512: Acute pain of left shoulder Additional History: FINDINGS: There is no evidence of fracture or dislocation. No other significant bone, joint, or soft tissue abnormality is identified. IMPRESSION: Negative. . 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 . > Interpreting Provider: Taj Merida MD on 05/23/2025 9:44 AM Narrative 05/23/2025 9:44 AM CDT PROCEDURE: XR LUMBAR SPINE 2 OR 3VW COMPARISON: No relevant available comparison. CLINICAL INFORMATION (none relevant/not provided if blank): Indication: M54.50: Midline low back pain without sciatica, unspecified chronicity Additional History: FINDINGS: There are five non rib bearing lumbar vertebral bodies. There are bilateral pars defects at L5 with grade 1 spondylolisthesis of L5 on S1. Posterior alignment is otherwise normal. Vertebral body height and intervertebral disc spaces are maintained. Procedure Note Taj Merida MD - 05/23/2025 PROCEDURE: XR LUMBAR SPINE 2 OR 3VW COMPARISON: No relevant available comparison. CLINICAL INFORMATION (none relevant/not provided if blank): Indication: M54.50: Midline low back pain without sciatica, unspecified chronicity Additional History: FINDINGS: There are five non rib bearing lumbar vertebral bodies. There arebilateral pars defects at L5 with grade 1 spondylolisthesis of L5 on S1. Posterior alignment is otherwise normal. Vertebral body height and intervertebral disc spaces are maintained. IMPRESSION: Bilateral spondylolysis and grade 1 spondylolisthesis of L5 on S1. . > Interpreting Provider: Taj Merida MD on 05/23/2025 9:44 AM [place] Pinedo MD DIAGNOSTIC IMAGING ORDERABLES Fi nal Result from Last 3 Months Insurance [facility] MEDICAID - [facility] THIRD DEMOCRAT LIABILITY Libertarian Liability Advance Directives * Full Code (Latest Code Status on File) Date Activated Date Inactivated Comments 11/24/2009 9:40 PM 11/25/2009 5:57 PM Care Teams Batting Machine Operator Insulation Relationship Specialty Start Date End Date Pcp, None [address] [place] [address] PCP - General 06/06/25
--- OUTSIDE RECORDS SUMMARY | 2025-06-11 20:07 | XMS_ITS | Encounter Summary ---
Author Organization [facility] Address [address] [place] [address] Care Team Providers Care Mat Roller Name Role Phone [place] Khoury MD Primary Care Provider [phone] Encounter Details Date Type Department Care Team (Late st Contact Info) Description 02/19/2008 Outpatient Historical [facility] [address] [place] [phone] Social History Tobacco Use Types Packs/Day Years Used Date Smoking Tobacco: Never Assessed Comments Unknown Sex and Gender Information Value Date Recorded Sex Assigned at Not on file Legal Sex Female 5:28 AM BOBBIN PRESSER Gender Identity Not on file Sexual Orientation Not on file documented as of this encounter Plan of Treatment Not on file documented as of this encounter Visit Diagnoses Not on filedocumented in this encounter Additional Health Concerns Infection Onset Date Last Indicated Resolved Time R/O COVID-19 12/15/2021 12/15/2021 12/15/2021 6:37 PM CDT R/O COVID-19 07/19/2022 07/19/2022 07/19/2022 8:51 AM BOBBIN PRESSER COVID-19 07/19/2022 07/19/2022 08/08/2022 1:16 AM BOBBIN PRESSER documented as of this encounter Care Teams Mat Roller Relationship Specialty Start Date End Date [place] Khoury MD [address] [place] [address] PCP - General 10/19/12 05/06/14 documented as of this encounter
--- OUTSIDE RECORDS SUMMARY | 2025-06-11 20:07 | XMS_ITS | Encounter Summary ---
Author Organization [email or web address] Address [address] [place] [address] Care Team Providers Care Radius Grinder Name Role Phone [place] Khoury MD Primary Care Provider [phone] Encounter Details Date Type Department Care Team (Latest Contact Info) Description 03/20/2008 Outpatient Historical [facility] Meredith Rios MD [address] [address] Supervision of Other Normal Social History Tobacco Use Types Packs/Day Years Used Date Smoking Tobacco: Never Assessed Comments Unknown Sex and Gender Information Value Date Recorded Sex Assigned at Not on file Legal Sex Female 5:28 AM FINISHED GARMENT INSPECTOR Gender Identity Not on file Sexual Orientation Not on file documented as of this encounter Plan of Treatment Not on file documented as of this encounter Procedures Procedure Name Priority Date/Time Associated Diagnosis Comments GLUCOSE TOLERANCE 1 HR GESTATIONAL Routine 03/20/2008 2:35 PM CDT CBC WITH DIFFERENTIAL Routine 03/20/2008 2:35 PM CDT COMPREHENSIVE METABOLIC PANEL Routine 03/20/2008 2:35 PM CDT documented in this encounter Results * (ABNORMAL) COMPREHENSIVE METABOLIC PANEL (03/20/2008 2:35 PM CDT) CHLORIDE 101 96 - 108 mmol/L [facility] GLUCOSE 106(H) 65 - 99 mg/dL [facility] BILIRUBIN TOTAL 0.3 0.2 - 1.0 mg/dL [facility] SODIUM 137 135 - 145 mmol/L [facility] AST 15 12 - 32 U/L [facility] CO2 25 22 - 30 mmol/L [facility] ALT 8 0 - 31 U/L [facility] CREATININE 0.43(L) 0.51 - 0.95 mg/dL [facility] POTASSIUM 3.7 3.5 - 4.9 mmol/L [facility] ALBUMIN 3.4 3.4 - 4.8 g/dL [facility] ALKALINE PHOSPHATASE 84 35 - 104 U/L [facility] BUN 4(L) 6 - 20 mg/dL [facility] CALCIUM 8.8 8.6 - 10.2 mg/dL [facility] TOTAL PROTEIN 6.2 6.0 - 8.3 g/dL [facility] GFR, >60 >=60 mL/min/1. 7 sq meter [facility] GFR >60 >=60 mL/min/1. 7 sq meter [facility] Comment: Modification of Diet in Renal Disease (MDRD) study formula. Estimated GFR rate interpretative information for both Americans and non- Americans is available on the [facility] Intranet at: [email or web address] Select: Lab Policies and Procedures Select: Reference Ranges - GFR Blood specimen (specimen) 03/20/2008 2:35 PM CDT 03/20/2008 2:49 PM CDT us Meredith Rios MD CHEMISTRY ORDERABLES Edited [facility] CLIA# [id number] [address] [place] [address] * GLUCOSE TOLERANCE 1 HR GESTATIONAL (03/20/2008 2:35 PM CDT) GLUCOSE 1 HR OBSTETRIC 106 65 - 139 mg/dL [facility] Blood specimen (specimen) 03/20/2008 2:35 PM CDT 03/20/2008 2:49 PM CDT us Meredith Rios MD CHEMISTRY ORDERABLES Final Re sult [facility] CLIA# [id number] [address] [place] [address] * CBC WITH DIFFERENTIAL (03/20/2008 2:35 PM CDT) HEMOGLOBIN 12.2 11.8 - 14.8 g/dL [facility] RDW 14.0 11.5 - 14.5 % [facility] WBC 8.7 4.0 - 9.8 K/uL [facility] MCH 28.6 27.2 - 32.6 pg [facility] MPV 10.2 9.3 - 12.4 fL [facility] HEMATOCRIT 36.1 35.5 - 44.0 % [facility] RDW-STDEV 42.9 37.1 - 48.7 fL [facility] RBC 4.27 3.90 - 4.90 M/uL [facility] MCHC 33.8 31.5 - 35.5 % [facility] PLATELETS 193 140 - 350 K/uL [facility] MCV 84.5 82.0 - 99.0 fL [facility] MONOCYTE ABSOLUTE 0.53 0.10 - 1.30 K/uL [facility] NEUTROPHILS 66 45 - 70 % [facility] NEUTROPHIL ABSOLUTE 5.76 1.90 - 7.00 K/uL [facility] EOSINOPHILS 3 0 - 7 % [facility] EOSINOPHIL ABSOLUTE 0.28 0.00 - 0.70 K/uL [facility] LYMPHOCYTES 24 16 - 45 % [facility] LYMPHOCYTE ABSOLUTE 2.11 0.70 - 4.50 K/uL [facility] BASOPHILS 0 0 - 2 % [facility] BASOPHILS ABSOLUTE 0.02 0.00 - 0.20 K/uL [facility] MONOCYTES 6 3 - 13 % [facility] Blood specimen (specimen) 03/20/2008 2:35 PM CDT 03/20/2008 2:49 PM CDT us Meredith Rios MD HEMATOLOGY ORDERABLES Edited INTERFACE SYSTEM Refer to clinic/hospital department [facility] CLIA# [id number] [address] [place] [address] documented in this encounter Visit Diagnoses Diagnosis Supervision of other normal documented in this encounter Additional Health Concerns Infection Onset Date Last Indicated Resolved Time R/O COVID-19 12/15/2021 12/15/2021 12/15/2021 6:37 PM CDT R/O COVID-19 07/19/2022 07/19/2022 07/19/2022 8:51 AM FINISHED GARMENT INSPECTOR COVID-19 07/19/2022 07/19/2022 08/08/2022 1:16 AM FINISHED GARMENT INSPECTOR documented as of this encounter Care Teams Radius Grinder Relationship Specialty Start Date End Date [place] Khoury MD [address] [place] [address] PCP - General 10/19/12 05/06/14 documented as of this encounter
--- OUTSIDE RECORDS SUMMARY | 2025-06-11 20:07 | XMS_ITS | Encounter Summary ---
Author Organization [facility] Address [address] [place] [address] Care Team Providers Care Salvage Inspector Name Role Phone [place] Khoury MD Primary Care Provider [phone] Encounter Details Date Type Department Care Team (Late st Contact Info) Description 01/17/2008 Outpatient Historical [facility] [address] [place] [address] Matilda Montalvo Social History Tobacco Use Types Packs/Day Years Used Date Smoking Tobacco: Never Assessed Comments Unknown Sex and Gender Information Value Date Recorded Sex Assigned at Not on file Legal Sex Female 5:28 AM SPECIAL DEPUTY SHERIFF Gender Identity Not on file Sexual Orientation Not on file documented as of this encounter Plan of Treatment Not on file documented as of this encounter Visit Diagnoses Not on filedocumented in this encounter Additional Health Concerns Infection Onset Date Last Indicated Resolved Time R/O COVID-19 12/15/2021 12/15/2021 12/15/2021 6:37 PM CDT R/O COVID-19 07/19/2022 07/19/2022 07/19/2022 8:51 AM SPECIAL DEPUTY SHERIFF COVID-19 07/19/2022 07/19/2022 08/08/2022 1:16 AM SPECIAL DEPUTY SHERIFF documented as of this encounter Care Teams Salvage Inspector Relationship Specialty Start Date End Date [place] Khoury MD [address] [place] [address] PCP - General 10/19/12 05/06/14 documented as of this encounter
--- OUTSIDE RECORDS SUMMARY | 2025-06-11 20:07 | XMS_ITS | Encounter Summary ---
Author Organization [facility] Address [address] [place] [address] Care Team Providers Care Conventional Machinist Name Role Phone [place] Khoury MD Primary Care Provider [phone] Encounter Details Date Type Department Care Team (Late st Contact Info) Description 02/19/2008 Outpatient Historical [facility] [address] [place] [phone] Meredith Rios MD [address] [place] [address] Social History Tobacco Use Types Packs/Day Years Used Date Smoking Tobacco: Never Assessed Comments Unknown Sex and Gender Information Value Date Recorded Sex Assigned at Not on file Legal Sex Female 5:28 AM EVP MANAGING DIRECTOR Gender Identity Not on file Sexual Orientation Not on file documented as of this encounter Plan of Treatment Not on file documented as of this encounter Visit Diagnoses Not on filedocumented in this encounter Additional Health Concerns Infection Onset Date Last Indicated Resolved Time R/O COVID-19 12/15/2021 12/15/2021 12/15/2021 6:37 PM CDT R/O COVID-19 07/19/2022 07/19/2022 07/19/2022 8:51 AM EVP MANAGING DIRECTOR COVID-19 07/19/2022 07/19/2022 08/08/2022 1:16 AM EVP MANAGING DIRECTOR documented as of this encounter Care Teams Conventional Machinist Relationship Specialty Start Date End Date [place] Khoury MD [address] [place] [address] PCP - General 10/19/12 05/06/14 documented as of this encounter
--- OUTSIDE RECORDS SUMMARY | 2025-06-11 20:07 | XMS_ITS | Encounter Summary ---
Author Organization [facility] Address [address] [place] [address] Care Team Providers Care Nitriles Lab Technician Name Role Phone [place] Khoury MD Primary Care Provider [phone] Encounter Details Date Type Department Care Team (Late st Contact Info) Description 10/31/2007 Outpatient Historical [facility] [address] [place] [address] Meredith Rios MD [address] [place] [address] Social History Tobacco Use Types Packs/Day Years Used Date Smoking Tobacco: Never Assessed Comments Unknown Sex and Gender Information Value Date Recorded Sex Assigned at Not on file Legal Sex Female 5:28 AM PAINTINGS CONSERVATOR Gender Identity Not on file Sexual Orientation Not on file documented as of this encounter Plan of Treatment Not on file documented as of this encounter Visit Diagnoses Not on filedocumented in this encounter Additional Health Concerns Infection Onset Date Last Indicated Resolved Time R/O COVID-19 12/15/2021 12/15/2021 12/15/2021 6:37 PM CDT R/O COVID-19 07/19/2022 07/19/2022 07/19/2022 8:51 AM PAINTINGS CONSERVATOR COVID-19 07/19/2022 07/19/2022 08/08/2022 1:16 AM PAINTINGS CONSERVATOR documented as of this encounter Care Teams Nitriles Lab Technician Relationship Specialty Start Date End Date [place] Khoury MD [address] [place] [address] PCP - General 10/19/12 05/06/14 documented as of this encounter
--- OUTSIDE RECORDS SUMMARY | 2025-06-11 20:07 | XMS_ITS | Encounter Summary ---
Author Organization [employer] Address [address] [place] [address] Care Team Providers Care Professor Of Journalism Name Role Phone [place] Khoury MD Primary Care Provider [phone] Encounter Details Date Type Department Care Team (Late st Contact Info) Description 04/15/2008 Outpatient Historical [facility] Meredith Rios MD [address] [phone] Abdominal Pain, Epigastric Social History Tobacco Use Types Packs/Day Years Used Date Smoking Tobacco: Never Assessed Comments Unknown Sex and Gender Information Value Date Recorded Sex Assigned at Not on file Legal Sex Female 5:28 AM HAND SPRAY OPERATOR Gender Identity Not on file Sexual Orientation Not on file documented as of this encounter Plan of Treatment Not on file documented as of this encounter Visit Diagnoses Diagnosis Abdominal pain, epigastric documented in this encounter Additional Health Concerns Infection Onset Date Last Indicated Resolved Time R/O COVID-19 12/15/2021 12/15/2021 12/15/2021 6:37 PM CDT R/O COVID-19 07/19/2022 07/19/2022 07/19/2022 8:51 AM HAND SPRAY OPERATOR COVID-19 07/19/2022 07/19/2022 08/08/2022 1:1 6 AM HAND SPRAY OPERATOR documented as of this encounter Care Teams Professor Of Journalism Relationship Specialty Start Date End Date [place] Khoury MD [address] [place] [address] PCP - General 10/19/12 05/06/14 documented as of this encounter
--- OUTSIDE RECORDS SUMMARY | 2025-06-11 20:07 | XMS_ITS | Encounter Summary ---
Author Organization [facility] Address [address] [place] [address] Care Team Providers Care Commercial Representative Name Role Phone [place] Khoury MD Primary Care Provider [phone] Encounter Details Date Type Department Care Team (Late st Contact Info) Description 02/07/2008 Outpatient Historical [facility] [address] [place] [phone] Meredith Rios MD [address] [place] [phone] Social History Tobacco Use Types Packs/Day Years Used Date Smoking Tobacco: Never Assessed Comments Unknown Sex and Gender Information Value Date Recorded Sex Assigned at Not on file Legal Sex Female 5:28 AM HEALTH ACTUARY Gender Identity Not on file Sexual Orientation Not on file documented as of this encounter Plan of Treatment Not on file documented as of this encounter Visit Diagnoses Not on filedocumented in this encounter Additional Health Concerns Infection Onset Date Last Indicated Resolved Time R/O COVID-19 12/15/2021 12/15/2021 12/15/2021 6:37 PM CDT R/O COVID-19 07/19/2022 07/19/2022 07/19/2022 8:51 AM HEALTH ACTUARY COVID-19 07/19/2022 07/19/2022 08/08/2022 1:16 AM HEALTH ACTUARY documented as of this encounter Care Teams Commercial Representative Relationship Specialty Start Date End Date [place] Khoury MD [address] [place] [address] PCP - General 10/19/12 05/06/14 documented as of this encounter
--- OUTSIDE RECORDS SUMMARY | 2025-06-11 20:07 | XMS_ITS | Encounter Summary ---
Author Organization [facility] Address [address] [place] [address] Care Team Providers Care Garment Fitter Name Role Phone Tyler Khoury MD Primary Care Provider [phone] Encounter Details Date Type Department Care Team (Late st Contact Info) Description 05/29/2008 Outpatient Historical [facility] [address] [place] [phone] Meredith Rios MD [address] [place] [phone] Social History Tobacco Use Types Packs/Day Years Used Date Smoking Tobacco: Never Assessed Comments Unknown Sex and Gender Information Value Date Recorded Sex Assigned at Not on file Legal Sex Female 5:28 AM PYROTECHNICIAN Gender Identity Not on file Sexual Orientation Not on file documented as of this encounter Plan of Treatment Not on file documented as of this encounter Visit Diagnoses Not on filedocumented in this encounter Additional Health Concerns Infection Onset Date Last Indicated Resolved Time R/O COVID-19 12/15/2021 12/15/2021 12/15/2021 6:37 PM CDT R/O COVID-19 07/19/2022 07/19/2022 07/19/2022 8:51 AM PYROTECHNICIAN COVID-19 07/19/2022 07/19/2022 08/08/2022 1:16 AM PYROTECHNICIAN documented as of this encounter Care Teams Garment Fitter Relationship Specialty Start Date End Date Tyler Khoury MD [address] [place] [address] PCP - General 10/19/12 05/06/14 documented as of this encounter
--- OUTSIDE RECORDS SUMMARY | 2025-06-11 20:07 | XMS_ITS | Encounter Summary ---
Author Organization [facility] Address [address] [place] [address] Care Team Providers Care Lean Manufacturing Engineer Name Role Phone Tyler Khoury MD Primary Care Provider [phone] Encounter Details Date Type Department Care Team (Late st Contact Info) Description 02/19/2008 Outpatient Historical [facility] [address] [place] [address] Chucky Skelton MD [address] [place] [address] Social History Tobacco Use Types Packs/Day Years Used Date Smoking Tobacco: Never Assessed Comments Unknown Sex and Gender Information Value Date Recorded Sex Assigned at Not on file Legal Sex Female 5:28 AM CATALYST OPERATOR GASOLINE Gender Identity Not on file Sexual Orientation Not on file documented as of this encounter Plan of Treatment Not on file documented as of this encounter Visit Diagnoses Not on filedocumented in this encounter Additional Health Concerns Infection Onset Date Last Indicated Resolved Time R/O COVID-19 12/15/2021 12/15/2021 12/15/2021 6:37 PM CDT R/O COVID-19 07/19/2022 07/19/2022 07/19/2022 8:51 AM CATALYST OPERATOR GASOLINE COVID-19 07/19/2022 07/19/2022 08/08/2022 1:16 AM CATALYST OPERATOR GASOLINE documented as of this encounter Care Teams Lean Manufacturing Engineer Relationship Specialty Start Date End Date Tyler Khoury MD [address] [place] [address] PCP - General 10/19/12 05/06/14 documented as of this encounter
--- OUTSIDE RECORDS SUMMARY | 2025-06-11 20:07 | XMS_ITS | Encounter Summary ---
Author Organization [facility] Address [address] [place] [address] Care Team Providers Care Conference Reservationist Name Role Phone Tyler Khoury MD Primary Care Provider [phone] Encounter Details Date Type Department Care Team (Late st Contact Info) Description 03/18/2008 Outpatient Historical [facility] [address] [place] [address] Chucky Skelton MD [address] [place] [address] Social History Tobacco Use Types Packs/Day Years Used Date Smoking Tobacco: Never Assessed Comments Unknown Sex and Gender Information Value Date Recorded Sex Assigned at Not on file Legal Sex Female 5:28 AM RETIREMENT SALES CONSULTANT Gender Identity Not on file Sexual Orientation Not on file documented as of this encounter Plan of Treatment Not on file documented as of this encounter Visit Diagnoses Not on filedocumented in this encounter Additional Health Concerns Infection Onset Date Last Indicated Resolved Time R/O COVID-19 12/15/2021 12/15/2021 12/15/2021 6:37 PM CDT R/O COVID-19 07/19/2022 07/19/2022 07/19/2022 8:51 AM RETIREMENT SALES CONSULTANT COVID-19 07/19/2022 07/19/2022 08/08/2022 1:16 AM RETIREMENT SALES CONSULTANT documented as of this encounter Care Teams Conference Reservationist Relationship Specialty Start Date End Date Tyler Khoury MD [address] [place] [address] PCP - General 10/19/12 05/06/14 documented as of this encounter
--- OUTSIDE RECORDS SUMMARY | 2025-06-11 20:07 | XMS_ITS | Encounter Summary ---
Author Organization [facility] Address [address] [place] [address] Care Team Providers Care Sprayer Leather Name Role Phone Tyler Khoury MD Primary Care Provider [phone] Encounter Details Date Type Department Care Team (Late st Contact Info) Description 02/06/2008 Outpatient Historical [facility] [address] [place] [phone] Social History Tobacco Use Types Packs/Day Years Used Date Smoking Tobacco: Never Assessed Comments Unknown Sex and Gender Information Value Date Recorded Sex Assigned at Not on file Legal Sex Female 5:28 AM DENTAL CERAMIST HELPER Gender Identity Not on file Sexual Orientation Not on file documented as of this encounter Plan of Treatment Not on file documented as of this encounter Visit Diagnoses Not on filedocumented in this encounter Additional Health Concerns Infection Onset Date Last Indicated Resolved Time R/O COVID-19 12/15/2021 12/15/2021 12/15/2021 6:37 PM CDT R/O COVID-19 07/19/2022 07/19/2022 07/19/2022 8:51 AM DENTAL CERAMIST HELPER COVID-19 07/19/2022 07/19/2022 08/08/2022 1:16 AM DENTAL CERAMIST HELPER documented as of this encounter Care Teams Sprayer Leather Relationship Specialty Start Date End Date Tyler Khoury MD [address] [place] [address] PCP - General 10/19/12 05/06/14 documented as of this encounter
--- OUTSIDE RECORDS SUMMARY | 2025-06-11 20:07 | XMS_ITS | Encounter Summary ---
Author Organization [facility] Address [address] [place] [address] Care Team Providers Care Hedis Specialist Name Role Phone Tyler Khoury MD Primary Care Provider [phone] Encounter Details Date Type Department Care Team (Late st Contact Info) Description 04/10/2008 Outpatient Historical [facility] [address] [place] [phone] Meredith Rios MD [address] [place] [phone] Social History Tobacco Use Types Packs/Day Years Used Date Smoking Tobacco: Never Assessed Comments Unknown Sex and Gender Information Value Date Recorded Sex Assigned at Not on file Legal Sex Female 5:28 AM WEIGHER AND MIXER Gender Identity Not on file Sexual Orientation Not on file documented as of this encounter Plan of Treatment Not on file documented as of this encounter Visit Diagnoses Not on filedocumented in this encounter Additional Health Concerns Infection Onset Date Last Indicated Resolved Time R/O COVID-19 12/15/2021 12/15/2021 12/15/2021 6:37 PM CDT R/O COVID-19 07/19/2022 07/19/2022 07/19/2022 8:51 AM WEIGHER AND MIXER COVID-19 07/19/2022 07/19/2022 08/08/2022 1:16 AM WEIGHER AND MIXER documented as of this encounter Care Teams Hedis Specialist Relationship Specialty Start Date End Date Tyler Khoury MD [address] [place] [address] PCP - General 10/19/12 05/06/14 documented as of this encounter
--- OUTSIDE RECORDS SUMMARY | 2025-06-11 20:07 | XMS_ITS | Encounter Summary ---
Author Organization [facility] Address [address] [place] [address] Care Team Providers Care C Wpf Developer Name Role Phone Tyler Khoury MD Primary Care Provider [phone] Encounter Details Date Type Department Care Team (Late st Contact Info) Description 05/27/2008 Outpatient Historical [facility] Xavier Smith DO [address] [address] Thalia Irizarry MD [address] [place] [address] Social History Tobacco Use Types Packs/Day Years Used Date Smoking Tobacco: Never Assessed Comments Unknown Sex and Gender Information Value Date Recorded Sex Assigned at Not on file Legal Sex Female 5:28 AM MOTOR MECHANIC Gender Identity Not on file Sexual Orientation Not on file documented as of this encounter Plan of Treatment Not on file documented as of this encounter Procedures Procedure Name Priority Date/Time Associated Diagnosis Comments URINALYSIS WITH REFLEX CULTURE Stat 05/27/2008 11:50 PM CDT URINALYSIS W/REFLEX MICROSCOPIC Stat 05/27/2008 11:50 PM CDT documented in this encounter Results * URINALYSIS (05/27/2008 11:50 PM CDT) LEUKOCYTE ESTERASE UA Negative Negative [facility] UROBILINOGEN UA <1 <1 mg/dL [facility] SPECIFIC GRAVITY UA 1.010 1.001 - 1.035 [facility] GLUCOSE UA Negative Negative [facility] COLOR UA Yellow [facility] NITRITE UA Negative Negative [facility] BILIRUBIN UA Negative Negative [facility] PH UA 7.0 5.0 - 8.0 [facility] KETONES UA Negative Negative [facility] CLARITY UA Clear Clear [facility] PROTEIN UA Negative Negative [facility] BLOOD UA Negative Negative [facility] Urine specimen (specimen) 05/27/2008 11:50 PM CDT 05/27/2008 11:56 PM CDT Thalia Irizarry MD URINE ORDERABLES Final Resul t Performing Organization Address [facility] Phone Number INTERFACE SYSTEM Refer to clinic/hospital department [facility] CLIA# [id number] [address] [place] [address] * URINALYSIS WITH REFLEX CULTURE (05/27/2008 11:50 PM CDT) URINE CULTURE ORDER Not indicated [facility] Comment: Criteria for a reflex culture include one or more of the following: Abnormal WBCs, RBCs or bacteria. Lack of qualifying criteria does not exclude the possibility of a urinary tract infection. Dilute urine, drug interference, etc. may decrease the sensitivity of the criteria analytes. Urine specimen (specimen) 05/27/2008 11:50 PM CDT 05/27/2008 11:56 PM CDT Thalia Irizarry MD URINE ORDERABLES Final Resul t Performing Organization Address [facility] Phone Number INTERFACE SYSTEM Refer to clinic/hospital department [facility] CLIA# [id number] [address] [place] [address] documented in this encounter Visit Diagnoses Not on filedocumented in this encounter Additional Health Concerns Infection Onset Date Last Indicated Resolved Time R/O COVID-19 12/15/2021 12/15/2021 12/15/2021 6:37 PM CDT R/O COVID-19 07/19/2022 07/19/2022 07/19/2022 8:51 AM MOTOR MECHANIC COVID-07/19/2022 07/19/2022 08/08/2022 1:16 AM MOTOR MECHANIC documented as of this encounter Care Teams C Wpf Developer Relationship Specialty Start Date End Date Tyler Khoury MD [address] [place] [address] PCP - General 10/19/12 05/06/14 documented as of this encounter
== END 2025-06-11 19:51 | disposition home or self-care (01) ==
PROVIDERS: Emergency Provider Nurse Practitioner
DX: S86.811A Strain of other muscle(s) and tendon(s) at lower leg level, right leg, initial encounter (principal); F17.210 Nicotine dependence, cigarettes, uncomplicated; X50.0XXA Overexertion from strenuous movement or load, initial encounter
CPT/HCPCS: 73562; 99203; G0463